=== PATIENT | female | born 1955 | race Caucasian/White ===

== ENCOUNTER → 2016-04-22 | Day surgery (SDC) | payer MEDICARE ==
[~2016-04-22] MED LIST: ABIL15TA2 PO; ADVA500A INH; ADVI200C5 PO; ALLO100T PO; ALPR.5 PO; BENZ1TAB PO; CILO100T PO; CILO50TA PO; CLON1 PO; DEXA4TAB PO; DUONI NEB; FERR1TAB58 PO; FLUO20SO3 PO; HALO10TA PO; HYDR-3534 PO; KLON2TAB PO; LACTATED RINGER'S 1000 ML INJ 1,000 ML ONE; LEVA500T33 PO; LIPI10TA PO; LIPI20TA PO; LOPR50TA12 PO; METO25TA3 PO; NORC7.5T PO; OXYGENTANK NAS.CANULA; PRED10PA PO; PRED5TAB PO; PREV30CA11 PO; PREV30CA36 PO; PROPOFOL 500 MG/50 ML BTL IV ONE; PROZ40CA PO; RIFA550 PO; SERO300T PO; SERO400T PO; TOPI25 PO; Z.0.OXYGENDME NC
== END | disposition home or self-care (01) ==
LOC: ESDC 07:49
PROVIDERS: ATTEND Internal Medicine Gastroenterology
DX: K29.70 Gastritis, unspecified, without bleeding (principal); K22.9 Disease of esophagus, unspecified; D12.3 Benign neoplasm of transverse colon; K62.1 Rectal polyp; D12.5 Benign neoplasm of sigmoid colon
CPT/HCPCS: 00740; 00810; 43239; 45380; 45385; 88305; 88312; J3010; J7120

== ENCOUNTER → 2016-04-30 | Outpatient (CLI) | payer MEDICARE ==
[~2016-04-30] MED LIST changes: -LACTATED RINGER'S 1000 ML INJ 1,000 ML ONE; -PROPOFOL 500 MG/50 ML BTL IV ONE
--- NOTE | 2016-05-10 13:09 | RSPPFT ---
DATE OF PROCEDURE: 04/30/16 COMMENTS: VOLUMES DYNAMIC: FVC and FEV1 normal. STATIC: VTG, RV and TLC normal. FLOWS: FEV1% and FEF 25-75 low normal. DIFFUSION: Severely reduced. FLOW VOLUME LOOP: Normal configuration with terminal airflow obstruction. IMPRESSION: Very mild terminal airflow obstruction with normal lung volumes and no improvement post-bronchodilator. The patient does have a severe reduction in diffusion.
== END ==
LOC: HRSP 08:46
PROVIDERS: ATTEND Internal Medicine
DX: J44.9 Chronic obstructive pulmonary disease, unspecified (principal)
CPT/HCPCS: 94060; 94620; 94726; 94729

== ENCOUNTER 2016-06-14 18:12 | Emergency (ER) | payer MEDICARE ==
[~2016-06-14] VITALS: Ht 157.5 cm; Wt 87.0 kg
[~2016-06-14 18:12] MED LIST changes: -ABIL15TA2 PO; -ADVI200C5 PO; -ALPR.5 PO; -BENZ1TAB PO; -CILO100T PO; -DEXA4TAB PO; -FERR1TAB58 PO; -HALO10TA PO; -HYDR-3534 PO; -KLON2TAB PO; -LIPI20TA PO; -METO25TA3 PO; -OXYGENTANK NAS.CANULA; -PREV30CA11 PO; -PROZ40CA PO; -SERO300T PO
[2016-06-14 18:14] VITALS: BP 204/117; PULSE 119; RESP 20; TEMP 98.4
[2016-06-14] MEDS ORDERED: PIPERACIL-TAZO 4.5 GM PREMIX 100 ML IV STA (18:26)
[2016-06-14] MEDS ORDERED: VANCOMYCIN INJ 1,000 MG in SODIUM CHLOR 0.9% 250 ML INJ 250 ML IV STA (18:26)
[2016-06-14 18:30] VITALS: RESP 20; O2SAT 97
--- NOTE | 2016-06-14 18:36 | PD ---
HPI Chief Complaint: Oral / Dental Pain or Problem Time Seen by Provider: 18:30 Travel History International Travel<30 days: No Contact w/Intl Traveler<30days: No Traveled to known affect area: No History of Present Illness HPI 61-year-old female with history of pulmonary fibrosis, requiring O2, presents the emergency department with history removal of 12 teeth from the upper jaw 2 weeks ago, performed by Dr. Barba, with secondary infection. Patient was seen 2 days ago, and drain was placed in the right upper jaw by her dental surgeon, and she was placed on Levaquin 500 mg daily. Patient continues to have drainage from the right upper jaw, and feels feverish, chills, nauseous , with drainage from the right upper jaw drain over the past several days. Patient feels worse today than she has yesterday. Patient has been taking hydrocodone for her pain which has been working well. She denies increased shortness of breath or chest pain. She denies vomiting or diarrhea. She is allergic to Percodan. PFSH Past Medical History Arthritis: No Asthma: Yes Autoimmune Disease: No Bipolar Disorder: Yes (w/Psychotic Features) Anxiety: Yes Depression: Yes Heart Rhythm Problems: No Cancer: Yes (Hx Breast Cancer) Cardiovascular Problems: Yes High Cholesterol: Yes Chemotherapy: Yes (1998) Chest Pain: Yes Congestive Heart Failure: No COPD: Yes Cerebrovascular Accident: No Coronary Artery Disease: No Diabetes: No Diminished Hearing: No Gastrointestinal Disorders: No GERD: No Glaucoma: No Genitourinary: No Headaches: No Hepatitis: No Hiatal Hernia: No Hypertension: Yes Kidney Stones: No Musculoskeletal: No Neurologic: No Psychiatric: Yes Reproductive: Yes Respiratory: Yes (pulmonary fibrosis) Immunizations Current: Yes Myocardial Infarction: No Renal Failure: No Seizures: No Sleep Apnea: No Thyroid Disease: No Ulcer: Yes (DUODENAL) Tetanus Vaccination: > 5 Years Influenza Vaccination: Yes Menopausal: Yes : 5 Para: 4 Miscarriage: 1 : 0 Ectopic : No Ovarian Cysts: Yes (BILATERAL) Dilation and Curettage (D&C): Yes Tubal Ligation: No Past Surgical History Abdominal Surgery: No Cardiac Surgery: No Section: No Ear Surgery: No Endocrine Surgery: No Eye Surgery: No Genitourinary Surgery: No Gynecologic Surgery: Yes Hysterectomy: Yes Mastectomy: Yes (right side) Oral Surgery: No Thoracic Surgery: Yes (RADICAL MASTECTOMY WITH HYSTERECTOMY) Tonsillectomy: Yes Social History Alcohol Use: No Tobacco Use: Yes (1 PPD) Substance Use: Yes Allergies-Medications (Allergen,Severity, Reaction): Coded Allergies: Percodan (Verified Allergy, Severe, Nausea/Vomiting, 06/14/16) Reported Meds & Prescriptions Reported Meds & Active Scripts Active Reported Oxygen tank (Oxygen) 1 Ea Tank 2 Liter JACKSON.CANULA CONTINUOUS Lortab (Hydrocodone-Acetaminophen) 7.5-325 Mg Tab 1 Tab PO TID PRN Xanax (Alprazolam) 0.5 Mg Tab 0.5-1 Mg PO DAILY PRN Benztropine (Benztropine Mesylate) 1 Mg Tab 1 Mg PO DAILY PRN Haloperidol 10 Mg Tab 10 Mg PO DAILY PRN Advil (Ibuprofen) 200 Mg Cap 600 Mg PO BID Lipitor (Atorvastatin Calcium) 20 Mg Tab 20 Mg PO HS Klonopin (Clonazepam) 2 Mg Tab 2 Mg PO HS Seroquel (Quetiapine Fumarate) 300 Mg Tab 600 Mg PO HS Abilify (Aripiprazole) 15 Mg Tab 15 Mg PO DAILY Iron (Ferrous Sulfate) 50 Mg Tab 150 Mg PO BID Prednisone 5 Mg Tab 5 Mg PO DAILY Allopurinol 100 Mg Tab 100 Mg PO DAILY Cilostazol 100 Mg Tab 100 Mg PO DAILY Metoprolol Tartrate 25 Mg Tab 25 Mg PO BID Prevacid (Lansoprazole) 30 Mg Capdr 30 Mg PO DAILY Prozac (Fluoxetine HCl) 40 Mg Cap 40 Mg PO DAILY Review of Systems Except as stated in HPI: all other systems reviewed are Neg General / Constitutional: Positive: Fever, Chills Eyes: No: Visual changes HENT: Positive: Headaches, Congestion, Dental Difficulties, Other (drainage from the right upper jaw), No: Lightheadedness, Sore Throat, Rhinitis, Rhinorrhea, Nosebleed, Neck Stiffness, Neck Pain, Ear Discharge, Earache Cardiovascular: No: Chest Pain or Discomfort Respiratory: Positive: Shortness of Breath, Wheezing (chronic. Chronic.), No : Cough, Sneezing Gastrointestinal: Positive: Nausea, No: Vomiting, Diarrhea, Abdominal Pain Genitourinary: No: Dysuria Musculoskeletal: No: Pain Skin: No Rash Neurologic: No: Weakness Psychiatric: No: Depression Endocrine: No: Polydipsia Hematologic/Lymphatic: No: Easy Bruising Physical Exam Narrative GENERAL: Patient appears in mild distress. She appears somewhat ill but not septic. SKIN: Warm. Mild pallor. Mild diaphoresis. HEAD: Atraumatic. Normocephalic. Patient has mild to moderate tenderness over the maxillary sinus. EYES: Pupils equal and round. No scleral icterus. No injection or drainage. ENT: No nasal bleeding or discharge. Mucous membranes pink and moist. Patient has drained fluid in the right upper gingival line with purulent drainage noted. Airway is patent. No significant lymphadenopathy. No erythema in the posterior pharynx. Ears are clear bilaterally. NECK: Trachea midline. No JVD. Supple nontender. CARDIOVASCULAR: Regular rate and rhythm. RESPIRATORY: No accessory muscle use. Mild Diffuse wheezes to auscultation. Breath sounds equal bilaterally. GASTROINTESTINAL: Abdomen soft, non-tender, nondistended. Hepatic and splenic margins not palpable. MUSCULOSKELETAL: Extremities without clubbing, cyanosis, or edema. No obvious deformities. NEUROLOGICAL: Awake and alert. No obvious cranial nerve deficits. Motor grossly within normal limits. Five out of 5 muscle strength in the arms and legs. Normal speech. PSYCHIATRIC: Appropriate mood and affect; insight and judgment normal. Data Data Last Documented VS Vital Signs Date Time Temp Pulse Resp B/P Pulse Ox O2 Delivery O2 Flow Rate FiO2 06/14/16 21:00 97 20 118/65 92 Nasal Cannula 4 06/14/16 18:14 98.4 Orders Electrocardiogram (06/14/16 18:26) Complete Blood Count With Diff (06/14/16 18:26) Comprehensive Metabolic Panel (06/14/16 18:26) Prothrombin Time / Inr (Pt) (06/14/16 18:26) Act Partial Throm Time (Ptt) (06/14/16 18:26) Lactic Acid Sepsis Protocol (06/14/16 18:26) Urinalysis - C+S If Indicated (06/14/16 18:26) Blood Culture (06/14/16 18:26) Chest, Single Ap (06/14/16 18:26) Blood Glucose (06/14/16 18:26) Ecg Monitoring (06/14/16 18:26) Iv Access Insert/Monitor (06/14/16 18:26) Oximetry (06/14/16 18:26) Oxygen Administration (06/14/16 18:26) Vancomycin Inj (Vancomycin Inj) (06/14/16 18:26) Piperacil-Tazo 4.5 Gm Premix (Zosyn 4.5 (06/14/16 18:26) Ct Facial Bones W/O Iv Cont (06/14/16 18:26) Lactic Acid (06/14/16 18:26) Morphine Inj (Morphine Inj) (06/14/16 19:45) Ondansetron Inj (Zofran Inj) (06/14/16 19:45) Dexamethasone Inj (Decadron Inj) (06/14/16 21:00) Labs Laboratory Tests Test 06/14/16 06/14/16 18:40 19:55 White Blood Count 17.9 TH/MM3 Red Blood Count 4.89 MIL/MM3 Hemoglobin 12.4 GM/DL Hematocrit 38.7 % Mean Corpuscular Volume 79.2 FL Mean Corpuscular Hemoglobin 25.4 PG Mean Corpuscular Hemoglobin 32.1 % Concent Red Cell Distribution Width 19.0 % Platelet Count 343 TH/MM3 Mean Platelet Volume 9.1 FL Neutrophils (%) (Auto) 84.9 % Lymphocytes (%) (Auto) 9.2 % Monocytes (%) (Auto) 4.7 % Eosinophils (%) (Auto) 0.9 % Basophils (%) (Auto) 0.3 % Neutrophils # (Auto) 15.2 TH/MM3 Lymphocytes # (Auto) 1.6 TH/MM3 Monocytes # (Auto) 0.8 TH/MM3 Eosinophils # (Auto) 0.2 TH/MM3 Basophils # (Auto) 0.1 TH/MM3 CBC Comment DIFF FINAL Differential Comment Prothrombin Time 11.4 SEC Prothromb Time International 1.0 RATIO Ratio Activated Partial 30.8 SEC Thromboplast Time Sodium Level 136 MEQ/L Potassium Level 3.9 MEQ/L Chloride Level 100 MEQ/L Carbon Dioxide Level 27.3 MEQ/L Anion Gap 9 MEQ/L Blood Urea Nitrogen 16 MG/DL Creatinine 1.14 MG/DL Estimat Glomerular Filtration 49 ML/MIN Rate Random Glucose 105 MG/DL Lactic Acid Level 1.2 mmol/L Calcium Level 9.2 MG/DL Total Bilirubin 0.4 MG/DL Aspartate Amino Transf 19 U/L (AST/SGOT) Alanine Aminotransferase 21 U/L (ALT/SGPT) Alkaline Phosphatase 125 U/L Total Protein 7.9 GM/DL Albumin 3.4 GM/DL Urine Color LIGHT-YELLOW Urine Turbidity CLEAR Urine pH 8.0 Urine Specific Gaines 1.007 Urine Protein NEG mg/dL Urine Glucose (UA) NEG mg/dL Urine Ketones NEG mg/dL Urine Occult Blood NEG Urine Nitrite NEG Urine Bilirubin NEG Urine Urobilinogen LESS THAN 2.0 MG/DL Urine Leukocyte Esterase SMALL Urine WBC 1 /hpf Urine Squamous Epithelial 1 /hpf Cells Microscopic Urinalysis Comment CATH-CULT NOT IND MDM Medical Decision Making Medical Screen Exam Complete: Yes Emergency Medical Condition: Yes Medical Record Reviewed: Yes Differential Diagnosis Recent dental surgery. Dental abscess. Sinus abscess. History of pulmonary fibrosis requiring O2. Fever. Possible sepsis. Narrative Course Patient appears medically stable at time of exam. Labs ordered including CBC, CMP, lactic acid, blood cultures 2, and urinalysis. EKG, chest x-ray, and CT of the sinus bones are ordered. IV access is obtained patient is given 4.5 g of Zosyn, and 1000 mg of vancomycin IV. Patient is given 4 mg Zofran IV as well as 4 mg morphine IV. Patient is given 1000 mL normal saline bolus. CBC shows leukocytosis of 17.9, but this could be partially due to her chronic prednisone use versus infection. CMP is unremarkable except for creatinine 1.14. Alkaline phosphatase slightly elevated at 125. Lactic acid is 1.2. CT of the facial bones shows suspected bony destruction and abscess involving the right maxilla at the expected location of the first molar on the right, this very bony destruction is associated with a past history and the right and exercise and into the socket for the first molar on the right per radiologist. Chest x-ray was unremarkable for acute process. We attempted to call Dr. Barba, but were unable to reach him. 2010 hrs. call was placed to Dr. Borjas the maxillofacial surgeon condenser tube tender. Patient was discussed and he felt that she should receive 4 mg of Decadron IV, and addition to the IV antibiotics previously ordered. He then felt she could be discharged home and follow-up with him on Friday. Patient is to continue her current meds as previous. Patient is given a dose of Decadron to take in the morning for milligrams by mouth. Patient will follow-up tomorrow if symptoms worsen, otherwise will follow-up with Dr. Borjas on Friday. Diagnosis Primary Impression: Dental abscess Additional Impression: Sinusitis, acute maxillary Qualified Code: J01.00 - Acute non-recurrent maxillary sinusitis Referrals: Roman Ward DDS Patient Instructions: Dental Abscess (ED), General Instructions, Sinusitis (ED) Additional Instructions: Patient was discussed and he felt that she should receive 4 mg of Decadron IV, and addition to the IV antibiotics previously ordered. He then felt she could be discharged home and follow-up with him on Friday. Patient is to continue her current meds as previous. Patient is given a dose of Decadron to take in the morning for milligrams by mouth. Patient will follow-up tomorrow if symptoms worsen, otherwise will follow-up with Dr. Borjas on Friday. Med/Other Pt SpecificInfo: Prescription(s) given Disposition: DISCHARGE HOME Condition: Stable Chencho Madrigal Jun 14, 2016 18:36
[2016-06-14] MEDS ORDERED: PRED5TAB PO (18:45)
[2016-06-14] MEDS ORDERED: FERR1TAB58 PO (18:45)
[2016-06-14] MEDS ORDERED: ALPR.5 PO (18:45)
[2016-06-14] MEDS ORDERED: PREV30CA11 PO (18:45)
[2016-06-14] MEDS ORDERED: PROZ40CA PO (18:45)
[2016-06-14] MEDS ORDERED: SERO300T PO (18:45)
[2016-06-14] MEDS ORDERED: ADVI200C5 PO (18:45)
[2016-06-14] MEDS ORDERED: HYDR-3534 PO (18:45)
[2016-06-14] MEDS ORDERED: LIPI20TA PO (18:45)
[2016-06-14] MEDS ORDERED: ALLO100T PO (18:45)
[2016-06-14] MEDS ORDERED: CILO100T PO (18:45)
[2016-06-14] MEDS ORDERED: OXYGENTANK NAS.CANULA (18:45)
[2016-06-14] MEDS ORDERED: HALO10TA PO (18:45)
[2016-06-14] MEDS ORDERED: BENZ1TAB PO (18:45)
[2016-06-14] MEDS ORDERED: METO25TA3 PO (18:45)
[2016-06-14] MEDS ORDERED: KLON2TAB PO (18:45)
[2016-06-14] MEDS ORDERED: ABIL15TA2 PO (18:45)
[2016-06-14 19:17] VITALS: BP 135/65; PULSE 106; RESP 18; O2SAT 99
[2016-06-14 19:17] LABS: AUTOMATED NEUTROPHIL # 15.2 TH/MM3 (1.8-7.7); BASOPHIL # 0.1 TH/MM3 (0-0.2); BASOPHIL % 0.3 % (0.0-2.0); EOSINOPHIL # 0.2 TH/MM3 (0-0.4); EOSINOPHIL % 0.9 % (0.0-4.0); HEMATOCRIT 38.7 % (35.0-46.0); HEMO FLAGS DIFF FINAL; LYMPH % 9.2 % (9.0-44.0); LYMPHOCYTE # 1.6 TH/MM3 (1.0-4.8); MEAN CELL VOLUME 79.2 FL (80.0-100.0); MEAN CORPUSCULAR HEMOGLOBIN 25.4 PG (27.0-34.0); MEAN CORPUSCULAR HGB CONC 32.1 % (32.0-36.0); MONO % 4.7 % (0.0-8.0); NEUT % 84.9 % (16.0-70.0); PLATELET COUNT 343 TH/MM3 (150-450); RED BLOOD COUNT 4.89 MIL/MM3 (4.00-5.30); WHITE BLOOD COUNT 17.9 TH/MM3 (4.0-11.0)
--- NOTE | 2016-06-14 19:20 | RADRPT ---
EXAM DATE/TIME: 06/14/2016 18:52 [facility] COMPARISON: No previous studies available for comparison. INDICATIONS : Evaluate for abscess. RADIATION DOSE: 36.44 CTDIvol (mGy) MEDICAL HISTORY : Hypertension. SURGICAL HISTORY : Tonsillectomy. ENCOUNTER: Initial ACUITY: 1 day PAIN SCORE: 6/10 LOCATION: Right facial region. TECHNIQUE: Volumetric scanning of the facial bones was performed. Using automated exposure contr ol and adjustment of the mA and/or kV according to patient size, radiation dose was kept as low as re asonably achievable to obtain optimal diagnostic quality images. FINDINGS: It appears all the upper teeth have been removed. There does appear to be an area of f ocal bony destruction in the medial right maxillary bone over the expected location of the first mola r. The defect in the maxillary bone appears to communicate with the right maxillary sinus. The defe ct measures 4 mm. There is fluid throughout the right maxillary sinus. There is induration in the so ft tissues surrounding this region. A focal fluid-filled abscess is not clearly seen. The left maxi llary sinus is clear. The frontal, left ethmoid and bilateral sphenoid sinuses are clear. There is s ome scattered right ethmoid sinus disease. The nasal septum is in the midline. There is paradoxical turning of the inferior aspects of the medial turbinates, this is a normal variant. The orbits appea r normal. The mandible is unremarkable. CONCLUSION: Suspected bony destruction and abscess involving the right maxilla at the expected lo cation of the first molar on the right. This area of bony destruction is associated with a passage b etween the right maxillary sinus and into the socket for the first molar on the right. Kyle Lizarraga MD on June 14, 2016 at 19:07 Board Certified Radiologist. This report was verified electronically.
--- NOTE | 2016-06-14 19:21 | RADRPT ---
EXAM DATE/TIME: 06/14/2016 19:13 [facility] COMPARISON: CHEST PA & LAT, May 18, 2015, 8:24. CHEST SINGLE AP, May 22, 2015, 5:02. INDICATIONS : Possible infection from dental surgery. MEDICAL HISTORY : Carcinoma, breast. SURGICAL HISTORY : Mastectomy, right. ENCOUNTER: Initial ACUITY: 1 day PAIN SCORE: 0/10 LOCATION: Bilateral chest FINDINGS: The heart size is normal. There is some minimal chronic prominence of the interstitium. A focal alveolar consolidation is not clearly seen. No effusion is seen. Clips are seen in the rig ht axillary region. CONCLUSION: No acute abnormality is seen. The patient does appear to have some underlying chroni c interstitial prominence. Kyle Lizarraga MD on June 14, 2016 at 19:14 Board Certified Radiologist. This report was verified electronically.
[2016-06-14 19:29] LABS: APTT (PATIENT) 30.8 SEC (24.3-30.1); PROTHROMBIN TIME - PATIENT 11.4 SEC (9.8-11.6)
[2016-06-14 19:39] LABS: ANION GAP 9 MEQ/L (5-15); AST (GOT) 19 U/L (15-37); BICARBONATE 27.3 MEQ/L (21.0-32.0); BLOOD UREA NITROGEN 16 MG/DL (7-18); CHLORIDE 100 MEQ/L (98-107); GLOMERULAR FILTRATION RATE 49 ML/MIN (>89); POTASSIUM 3.9 MEQ/L (3.5-5.1); SODIUM (NA) 136 MEQ/L (136-145)
[2016-06-14 19:43] LABS: ALKALINE PHOSPHATASE 125 U/L (45-117); ALT (GPT) 21 U/L (10-53); TOTAL BILIRUBIN ADULT 0.4 MG/DL (0.2-1.0)
[2016-06-14] MEDS ORDERED: MORPHINE SULFATE 4 MG/ML INJ IV PUSH ONE (19:45)
[2016-06-14] MEDS ORDERED: ONDANSETRON HCL 4 MG/2 ML VIAL IV PUSH ONE (19:45)
[2016-06-14 20:41] LABS: BLOOD, URINE NEG (NEG); GLUCOSE,URINE NEG (NEG); KETONE, URINE NEG (NEG); NITRITE,URINE NEG (NEG); SQUAMOUS EPITHELIAL CELL URINE 1 /hpf (0-5); URINE COLOR LIGHT-YELLOW (YELLW/STRAW)
[2016-06-14 20:43] LABS: COMMENT (UR) CATH-CULT NOT IND; CULTURE IF INDICATED CATH CULTURE NOT IND
[2016-06-14 21:00] VITALS: BP 118/65; PULSE 97; RESP 20; O2SAT 92
[2016-06-14] MEDS ORDERED: DEXAMETHASONE SOD PHOS 4 MG/ML VIAL IV PUSH ONE (21:00)
[2016-06-14] MEDS ORDERED: DEXA4TAB PO (21:39)
--- NOTE | 2016-06-15 19:18 | EKG ---
Date Performed: 06/14/2016 Time Performed: 19:21:17 PTAGE: 61 years EKG: SINUS TACHYCARDIA INDETERMINATE AXIS NS ST-T CHANGES ABNORMAL RHYTHM ECG PREVIOUS TRACING : 05/15/2015 12.32 Compared to the previous tracing NS ST-T changes present DOCTOR: Annette Landaverde Interpretating Date/Time 06/15/2016 19:17:02
== END 2016-06-14 22:21 | disposition home or self-care (01) ==
LOC: NEPE 18:12
DX: K04.7 Periapical abscess without sinus (principal); J01.00 Acute maxillary sinusitis, unspecified; R00.0 Tachycardia, unspecified; J84.10 Pulmonary fibrosis, unspecified; J45.909 Unspecified asthma, uncomplicated; J44.9 Chronic obstructive pulmonary disease, unspecified; I10 Essential (primary) hypertension; F17.200 Nicotine dependence, unspecified, uncomplicated; Z79.899 Other long term (current) drug therapy; Z99.81 Dependence on supplemental oxygen
CPT/HCPCS: 70486; 71010; 80053; 81001; 83605; 85025; 85610; 85730; 87040; 93005; 96374; 96375; 99285; J1100; J2270; J2405; J2543; J3370; J7050

== ENCOUNTER 2016-09-03 13:12 | Day surgery (SDC) | payer MEDICARE ==
[~2016-09-03 13:12] MED LIST changes: +ABIL15TA2 PO; -ADVA500A INH; +ADVI200C5 PO; +ALPR.5 PO; +BENZ1TAB PO; +CILO100T PO; -CILO50TA PO; -CLON1 PO; +DEXA4TAB PO; -DUONI NEB; +FERR1TAB58 PO; -FLUO20SO3 PO; +HALO10TA PO; +HYDR-3534 PO; +KLON2TAB PO; -LEVA500T33 PO; -LIPI10TA PO; +LIPI20TA PO; -LOPR50TA12 PO; +METO25TA3 PO; -NORC7.5T PO; +OXYGENTANK NAS.CANULA; -PRED10PA PO; +PREV30CA11 PO; -PREV30CA36 PO; +PROZ40CA PO; -RIFA550 PO; +SERO300T PO; -SERO400T PO; -TOPI25 PO; -Z.0.OXYGENDME NC
[2016-09-03 13:33] VITALS: BP 159/86; PULSE 79; RESP 20; TEMP 98; O2SAT 94
[2016-09-03] MEDS ORDERED: IBUP-232 PO (13:51)
[2016-09-03] MEDS ORDERED: BENZ0.5T PO (13:52)
[2016-09-03] MEDS ORDERED: VANCOMYCIN 1,500 MG/NS 500 ML IV ONE ×4 (15:00)
--- NOTE | 2016-09-03 17:06 | PD.RAD ---
Radiology Post PICC Prog Note Pre Procedure Diagnosis: (1) Sinusitis, acute maxillary Post Procedure Diagnosis: (1) Sinusitis, acute maxillary Procedure: Left PICC line placement Procedure Date: Sep 03, 2016 Supervising Radiologist Ok Adkins JR Proceduralist/Assist: Colleen Ray, RT(R)() Device Side: Left Macedonian: 4 single lumen cm: 43 Catheter: Power PICC Plan of Activity Patient to Unit: ROPU Patient Condition: Good PICC line can be used immediately Jr. Jed,Ok Saba MD Sep 03, 2016 17:06
[2016-09-03] MEDS ORDERED: SODIUM CHLORIDE 0.9% FLUSH 10 ML FLUSH IVF PRN ×2 (17:15)
--- NOTE | 2016-09-04 08:27 | RADRPT ---
EXAM DATE/TIME: 09/03/2016 14:38 [facility] COMPARISON: No previous studies available for comparison. INDICATIONS : Sinus infection.Patient needs IV antibx. MEDICAL HISTORY : 1. Pulmonary fibrosis 2. COPD 3. Asthma 4. HTN 5. Bipolar SURGICAL HISTORY : 1. Tonsillectomy 2. Rt masectomy 3. Hysterectomy ENCOUNTER: Initial ACUITY: 1 month PAIN SCORE: 0/10 FLUORO TIME: 0.2 IMAGE SERIES: 1 ACCESS: Left basilic vein DEVICE(S): 1.) 4 Korean single lumen 43 cm Xcela Power PICC PROCEDURE : 1. Ultrasound guidance for venous catheterization. 2. Fluoroscopic guidance. 3. Ultrasound & fluoroscopic guided central venous Power PICC line placement. The risks, benefits and alternatives to the procedure were explained and verbal and written consent w as obtained. The site was prepped in sterile fashion. Full sterile technique was used, including ca p, mask, sterile gloves and gown and a large sterile sheet. Hand hygiene and 2% chlorhexidine prep w as utilized per protocol for cutaneous antisepsis with appropriate dry time for site. The skin and s ubcutaneous tissues were infiltrated with local anesthetic solution. Under direct ultrasound guidance, a suitable vein was accessed and a measuring guidewire was introduc ed and positioned in the central venous system. The ultrasound images depicting access guidance were saved and stored to PACS for permanent record. A Power Injectable PICC line was cut to prescribed length and introduced, positioned with tip at the cavoatrial junction level. The line was flushed and secured per protocol. CONCLUSION: 1. Uncomplicated central venous Power PICC line placement. 2. The PICC line can be used immediately. Ok Adkins Jr., MD on September 04, 2016 at 8:19 Board Certified Radiologist. This report was verified electronically.
[2016-09-04] MEDS ORDERED: SODIUM CHLORIDE 0.9% FLUSH 10 ML FLUSH IVF SCH (09:00)
== END 2016-09-03 16:56 | disposition home or self-care (01) ==
LOC: HROP 13:12 → HRIP 13:13 → HROP 16:56
PROVIDERS: ATTEND Specialist
DX: J01.90 Acute sinusitis, unspecified (principal); I10 Essential (primary) hypertension; J44.9 Chronic obstructive pulmonary disease, unspecified; J45.909 Unspecified asthma, uncomplicated; F31.9 Bipolar disorder, unspecified; J84.10 Pulmonary fibrosis, unspecified
CPT/HCPCS: 36569; 76937; 77001; 96365; C1751; J1642; J3370; J7040

== ENCOUNTER 2016-09-04 09:09 | Day surgery (SDC) | payer MEDICARE ==
[~2016-09-04 09:09] MED LIST changes: -ADVI200C5 PO; +BENZ0.5T PO; -BENZ1TAB PO; -FERR1TAB58 PO; +IBUP-232 PO
[2016-09-04 09:27] VITALS: BP 134/83; PULSE 95; RESP 20; TEMP 99.3; O2SAT 93
== END 2016-09-04 09:50 | disposition home or self-care (01) ==
LOC: HROP 09:09 → HRIP 09:13 → HROP 09:50
PROVIDERS: ATTEND Radiology Body Imaging
DX: Z45.2 Encounter for adjustment and management of vascular access device (principal)
CPT/HCPCS: 36569; 76937; 77001; G0463; 99211

== ENCOUNTER → 2016-10-10 | Day surgery (SDC) | payer MEDICARE ==
[~2016-10-10] VITALS: Ht 160 cm; Wt 86.0 kg
[~2016-10-10] MED LIST changes: +*RESP: ALBUTEROL 2.5 MG/3 ML NEB (PRN) PERIprocedural Use ONLY NEB ONE; +ACETAMINOPHEN 1000 MG/100 ML 100 ML IV ONE; +ACETAMINOPHEN/HYDROcodone 325 MG/7.5 MG TAB ONE; +ACETAMINOPHEN/HYDROcodone 325 MG/7.5 MG TAB PO PRN; +CHLORHEXIDINE GLUCONATE 2 % 1 PACK (2 CLOTHS) TOPICAL PRN; +DIFL100T PO; +DO NOT ADM ANY ANTICOAGULANT DRUGS PRN; +EPINEPHrine HCL (1:1000) 30 MG/30 ML VIAL ONE; +INSULIN HUMAN REGULAR 1,000 UNITS/10 ML VIAL SQ PRN; +LACTATED RINGER'S 1000 ML IV PRN; +LIDOCAINE 2%/EPINEPHrine PF 1:200,000 20ML SDV ONE; +METOPROLOL TARTRATE 25 MG TAB PO PRN; +MORPHINE SULFATE 4 MG/ML INJ IV PUSH PRN; +ONDANSETRON HCL 4 MG/2 ML VIAL IV PUSH ONE; +ONDANSETRON HCL 4 MG/2 ML VIAL IV PUSH PRN; +POVIDONE IODINE 5% (ANTISEPSIS KIT) 4 APPLICATIONS EACH NARE PRN; +PROPOFOL 200 MG/20 ML AMP IV ONE; +SODIUM CHLORID 0.9% 500 ML IV PRN; +SUGAMMADEX SODIUM 200 MG/2 ML VIAL IV PUSH ONE; +fentaNYL CITRATE 250 MCG/5 ML AMP ONE
--- NOTE | 2016-10-10 07:55 | MH ---
cc: BETH RIVERS M.D. DATE OF ADMISSION: 10/10/2016 HISTORY OF PRESENT ILLNESS A 58-year-old female with chronic sinusitis and nasal obstruction for nasal sinus surgery. PAST MEDICAL HISTORY Unremarkable. PAST SURGICAL HISTORY Unremarkable. REVIEW OF SYSTEMS/FAMILY HISTORY AND SOCIAL HISTORY Unremarkable. PHYSICAL EXAMINATION GENERAL: Well-appearing patient no acute distress noted. HEENT: Exam reveals mucopurulent secretions from the right middle meatus. LUNGS: Clear. HEART: Regular rate and rhythm. ABDOMEN: Soft and nontender. EXTREMITIES: Without cyanosis, clubbing or edema. NEUROLOGIC: Alert, oriented, nonfocal neurologic exam. IMPRESSION The patient with chronic sinusitis for surgical intervention. Instructed as to the method of surgery and possible complication include anesthetic complications, cardiac difficulty, pulmonary difficulty, stroke, or even . Surgical complications bleeding, infection, risk of injury to orbit including blindness and diplopia, injury to brain, including CSF leak, meningitis, abscess, . The patient appeared to agree, accept and understand the above-mentioned risks and benefits. In addition, no guarantees or warranties regarding outcome were given. Will therefore proceed with surgery. Beth Rivers MD NERI/EO /5:44 PM /7:50 AM
--- NOTE | 2016-10-10 11:05 | EKG ---
Date Performed: 10/10/2016 Time Performed: 08:25:37 PTAGE: 61 years EKG: Sinus rhythm NORMAL ECG PREVIOUS TRACING : 06/14/2016 19.21 Compared to previous tracing, nonspecific ST changes have r esolved. DOCTOR: Ruy Pop Interpretating Date/Time 10/10/2016 11:03:35
[2016-10-10 12:45] VITALS: BP 132/80; PULSE 82; RESP 20; TEMP 97; O2SAT 95
--- NOTE | 2016-10-13 20:39 | MP ---
cc: BETH RIVERS DATE OF SURGERY: 10/10/2016. PREOPERATIVE DIAGNOSIS: Chronic sinusitis, right side. PROCEDURE: Endoscopic frontal sinusotomy, right side; endoscopic anterior and posterior ethmoidectomy right side, endoscopic maxillary antrostomy with removal of tissue right side. SURGEON: Beth Rivers MD ANESTHESIA: General anesthesia. ESTIMATED BLOOD LOSS: 100 cc. COMPLICATIONS: No complications. DESCRIPTION OF THE PROCEDURE IN DETAIL: Prepped, draped usual fashion. 1% Xylocaine with 1:100,000 epinephrine injected into the nasal septum, the inferior turbinate and middle meatus bilaterally. 1:1000 adrenaline soaked pledgets were placed bilaterally and removed. Under endoscopic visualization, microdebrider was used to remove the uncinate process on the right side. A significant amount of purulent material was expressed at this time from the middle meatus. Once this was expressed from the middle meatus, it was cultured. The microdebrider was used to remove the remainder of the uncinate. Once this was achieved, the patient then had the frontal sinus recess dissected. Mucopurulent secretions were suctioned from the frontal sinus recess. The anterior and posterior ethmoidectomy was performed with removal of significant mucopurulent material and bony septae taking care not to injure the orbit or the cranium. The natural antrostomy identified and enlarged significantly with polypoid tissue removed from it endoscopically with the microdebrider and the maxillary antrostomy was irrigated with saline and suctioned clear. A Telfa splint was placed. The patient tolerated procedure well. Beth Rivers MD [facility] /7:51 AM /8:32 PM
== END | disposition home or self-care (01) ==
LOC: HSDC 06:52
PROVIDERS: ATTEND Specialist
DX: J32.9 Chronic sinusitis, unspecified (principal); J34.89 Other specified disorders of nose and nasal sinuses; B95.7 Other staphylococcus as the cause of diseases classified elsewhere; Z16.11 Resistance to penicillins; I10 Essential (primary) hypertension; Z01.818 Encounter for other preprocedural examination
CPT/HCPCS: 00160; 31255; 31267; 31276; 86403; 87015; 87070; 87077; 87102; 87116; 87185; 87186; 87205; 87206; 93005; J0131; J0171; J2405; J3010; J7120; J7613; 94150; 94640; 94664

== ENCOUNTER 2017-09-17 10:12 | Inpatient (IN) ==
[2017-09-17 11:13] LABS: Baso # (Auto) 0.1 th/mm3 (0.0-0.2); Baso % (Auto) 0.7 % (0.0-2.0); Eos % (Auto) 0.4 % (0.0-4.0); Hematocrit 40.6 % (35.0-46.0); Hemoglobin 13.9 gm/dL (11.6-15.3); Lymph # (Auto) 1.2 th/mm3 (1.0-4.8); Lymph % (Auto) 12.6 % (9.0-44.0); Mean Corpuscular HGB Conc 34.3 % (32.0-36.0); Mean Corpuscular Hemoglobin 29.3 pg (27.0-34.0); Mean Corpuscular Volume 85.5 fL (80.0-100.0); Mean Platelet Volume 9.2 fL (7.0-11.0); Mono # (Auto) 0.4 th/mm3 (0.0-0.9); Mono % (Auto) 4.4 % (0.0-8.0); Neut % (Auto) 81.9 % (16.0-70.0); Platelet Count 293 th/mm3 (150-450); Red Blood Count 4.75 mil/mm3 (4.00-5.30); Red Cell Distribution Width 14.6 % (11.6-17.2); White Blood Count 9.7 th/mm3 (4.0-11.0)
[2017-09-17 11:33] LABS: Alanine Aminotransferase 31 U/L (10-53); Albumin 3.8 g/dL (3.4-5.0); Anion Gap 9 meq/L (5-15); Aspartate Aminotransferase 18 U/L (15-37); Blood Urea Nitrogen 14 mg/dL (7-18); Calcium 9.2 mg/dL (8.5-10.1); Chloride 105 meq/L (98-107); Glomerular Filtration Rate 56 mL/min (>89); Glucose,Random 119 mg/dL (74-106); Potassium 3.8 meq/L (3.5-5.1); Sodium 141 meq/L (136-145)
[2017-09-17 11:43] LABS: Alkaline Phosphatase 100 U/L (45-117); Total Protein 7.8 g/dL (6.4-8.2)
[2017-09-17] MEDS ORDERED: Tetanus/Diphtheria Toxoid Adult Vaccine Inj 0.5 ML Vial IM ONE (12:04)
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
[2017-09-17] MEDS ORDERED: Acetaminophen 325 MG Tablet PO PRN (14:35)
[2017-09-17] MEDS ORDERED: Aluminum/Magnesium/Simethacone Susp 30 ML UDC PO PRN (14:35)
[2017-09-17] MEDS: Gabapentin 300 MG Capsule PO SCH ×2 (18:02→20:14)
[2017-09-17] MEDS: Metoprolol Tartrate 25 MG Tablet PO SCH ×2 (18:02→20:14)
[2017-09-17] MEDS: Allopurinol 100 MG Tablet PO SCH (18:03)
[2017-09-17] MEDS: Baclofen 10 MG Tablet PO SCH (20:14)
[2017-09-18] MEDS ORDERED: Gabapentin 300 MG Capsule PO SCH (09:00)
[2017-09-18] MEDS ORDERED: Allopurinol 100 MG Tablet PO SCH (09:00)
[2017-09-18] MEDS ORDERED: Metoprolol Tartrate 50 MG Tablet PO SCH (09:00)
[2017-09-18] MEDS: Gabapentin 300 MG Capsule PO SCH ×4 (09:23→20:31)
[2017-09-18] MEDS: Metoprolol Tartrate 25 MG Tablet PO SCH ×2 (09:23→20:31)
[2017-09-18] MEDS ORDERED: Bisacodyl 10 MG Supp RECTAL PRN (09:55)
[2017-09-18] MEDS ORDERED: Aluminum/Magnesium/Simethacone Susp 30 ML UDC PO PRN (09:55)
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
--- NOTE | 2017-09-18 10:57 | P.CONIM ---
History of Present Illness Requesting Physician: Kyle Padilla Reason for Consult: Medical management Primary Care Provider: Ha Caraballo MD Family Provider: Ha Caraballo MD History of Present Illness: This a 62-year-old female patient with past medical history which includes bipolar disorder, cervical radiculopathy, chronic respiratory failure, pulmonary fibrosis, COPD on 5 L oxygen via nasal cannula at home, chronic kidney disease stage III, nonalcoholic fatty liver, GERD, gastroparesis, hypertension, irritable bowel syndrome, breast cancer status post mastectomy and lumbar radiculopathy. Patient has been weaning herself off her Seroquel without physician orders. She also quit taking her antidepressant 2 days ago. She states that she has been hearing voices over the past several days. The patient also endorses feeling suicidal and had thoughts of killing herself. Patient has been admitted to inpatient psychiatric unit we have been consulted for assistance with medical management. Patient offers no medical complaints at this time. Patient denies chest pain nausea vomiting fevers chills cough congestion. Patient reports her shortness of breath is at her baseline due to her chronic respiratory failure pulmonary fibrosis and COPD. PMH: bipolar disorder, cervical radiculopathy, chronic respiratory failure, pulmonary fibrosis, COPD on 5 L oxygen via nasal cannula at home, chronic kidney disease stage III, nonalcoholic fatty liver, GERD, gastroparesis, hypertension, irritable bowel syndrome and lumbar radiculopathy PSxH: Mastectomy secondary to breast cancer, capsule endoscopy, colonoscopy, EGD, hysterectomy, paravertebral nerve block, tonsillectomy adenoidectomy Social history: FMH: Review of Systems unobtainable due to mental status [facility] - History History Provided By: Patient, Family Member - Medical History Medical History: Medical History (Last Updated 09/17/17 @ 10:41 by Korina Barron RN) Bipolar disorder Depression Gastroparesis H/O: hysterectomy HTN (hypertension) Pulmonary fibrosis Wears dentures [place] teeth extracted - Surgical History Surgical History: Surgical History (Last Updated 09/17/17 @ 10:41 by Korina Barron RN) History of mastectomy History of tonsillectomy - Tobacco History Second Hand Smoke Exposure: Yes Tobacco Use In Past 30 Days: Yes Smoking Status: Current every day smoker Tobacco Type: E-Cigarettes - Alcohol History How Often Do You Have a Drink Containing Alcohol: Never - Substance Use History Substance History: Active Abuse, Past History - Substance Use Type Marijuana Type: Admits "one toke" 2x days ago Status: Active Route Used: Inhalation Frequency: had some 2 days ago Reason for Use: Get High - Travel History Recent Travel in the [place] Within the Last 8 Weeks: No Recent Travel Out of the Country Within the Last 8 Weeks: No - Immunization History Tetanus Immunization: Unsure Hx Influenza Vaccine This Season: No Medications and Allergies Allergies Allergy/AdvReac Type Severity Reaction Status Date / Time aspirin Allergy Severe Nausea/Vomi Unverified 01/02/17 13:25 ting oxycodone Allergy Severe Nausea/Vomi Unverified 01/02/17 13:25 ting sulfamethoxazole Allergy Severe rash Verified 01/02/17 13:25 trimethoprim Allergy Severe rash Verified 01/02/17 13:25 Home Medications Medication Instructions Recorded Confirmed Type allopurinol 100 mg PO DAILY 09/17/17 09/17/17 History atorvastatin [Lipitor] 20 mg PO DAILY 09/17/17 09/17/17 History baclofen 10 mg PO HS 09/17/17 09/17/17 History cholecalciferol (vitamin D3) 1,000 unit PO DAILY 09/17/17 09/17/17 History [Vitamin D3] cilostazol 50 mg PO BID 09/17/17 09/17/17 History clonazepam [Klonopin] 2 mg PO DAILY 09/17/17 09/17/17 History fluoxetine [Prozac] 40 mg PO DAILY 09/17/17 09/17/17 History gabapentin 300 mg PO QID 09/17/17 09/17/17 History haloperidol 10 mg PO TID PRN 09/17/17 09/17/17 History hydrocodone-acetaminophen 1 tab PO Q6H PRN 09/17/17 09/17/17 History lansoprazole [Prevacid] 30 mg PO DAILY 09/17/17 09/17/17 History metoprolol tartrate [Lopressor] 25 mg PO BID 09/17/17 09/17/17 History omega 3-nvm-kbj-fish oil [Fish Oil] 1,000 mg PO HS 09/17/17 09/17/17 History prednisone 5 mg PO DAILY 09/17/17 09/17/17 History quetiapine [Seroquel] 600 mg PO HS 09/17/17 09/17/17 History Active Medications: Active Medications Acetaminophen (Tylenol) 650 mg PO Q4H PRN PRN Reason: Pain 1-5 or Temp >101F Hydrocodone Bitart/Acetaminophen ([place] 7.5/325) 1 tab PO Q6H PRN PRN Reason: PAIN 1-10 Al Hydrox/Mg Hydrox/Simethicone (Mag-Al Plus Susp Liq) 30 ml PO Q6H PRN PRN Reason: DYSPEPSIA Al Hydroxide/Mg Hydroxide (Milk Of Magnesia Liq) 30 ml PO Q12H PRN PRN Reason: Mild Constipation Allopurinol (Zyloprim) 100 mg PO DAILY [facility] Last Admin: 09/17/17 18:03 Dose: 100 mg Atorvastatin Calcium (Lipitor) 20 mg PO DAILY [facility] Last Admin: 09/18/17 09:23 Dose: 20 mg Baclofen (Lioresal) 10 mg PO HS [facility] Last Admin: 09/17/17 20:14 Dose: 10 mg Bisacodyl (Dulcolax Supp) 10 mg RECTAL DAILY PRN PRN Reason: SEVERE CONSITIPATION Cilostazol (Pletal) 50 mg PO BID [facility] Clonazepam (Klonopin) 2 mg PO DAILY [facility] Diphenhydramine HCl (Benadryl) 50 mg PO HS PRN PRN Reason: INSOMNIA Fluoxetine HCl (Prozac) 40 mg PO DAILY [facility] Gabapentin (Neurontin) 300 mg PO QID [facility] Last Admin: 09/18/17 09:23 Dose: 300 mg Haloperidol (Haldol) 10 mg PO BID@0900,1800 [facility] Last Admin: 09/17/17 18:03 Dose: 10 mg Hydroxyzine HCl (Atarax) 50 mg PO Q6H PRN PRN Reason: ANXIETY Lactulose (Lactulose Liq) 30 ml PO DAILY PRN PRN Reason: SEVERE CONSITIPATION Metoprolol Tartrate (Lopressor) 25 mg PO BID [facility] Last Admin: 09/18/17 09:23 Dose: 25 mg Nicotine (Habitrol 21 Mg Patch.24 Hr) 1 patch T-DERMAL DAILY [facility] Last Admin: 09/18/17 09:23 Dose: 1 patch Pantoprazole Sodium (Protonix) 40 mg PO DAILY [facility] Last Admin: 09/18/17 09:23 Dose: 40 mg Patch Removal (Remove Old Patch) 1 each T-DERMAL DAILY [facility] Last Admin: 09/18/17 09:24 Dose: 1 each Prednisone (Deltasone) 5 mg PO DAILY [facility] Quetiapine Fumarate (Seroquel) 600 mg PO HS [facility] Last Admin: 09/17/17 20:16 Dose: Not Given Senna/Docusate Sodium (Tanya-Colace) 1 tab PO BID [facility] Sennosides (Senokot) 17.2 mg PO Q12H PRN PRN Reason: Moderate Constipation Vitamin D (Vitamin D3) 1,000 unit PO DAILY [facility] Last Admin: 09/18/17 09:23 Dose: 1,000 unit Exam Vital signs: Vital Signs 09/18/17 05:56 Temperature 96.8 F L Pulse Rate 94 H Respiratory Rate 16 Pulse Oximetry 96 Intake & Output 09/17/17 09/18/17 09/18/17 18:59 06:59 18:59 Weight 92.533 kg Other: # Voids 2 Narrative: GENERAL: This is a well-nourished, well-developed patient, flat affect in no apparent distress. CARDIOVASCULAR: Regular rate and rhythm RESPIRATORY: clear through out GASTROINTESTINAL: Abdomen soft, non-tender, nondistended. Normal active bowel sounds MUSCULOSKELETAL: Extremities without clubbing, cyanosis, or edema. NEURO: no focal neurological deficits. Moves all ext x4 Results - Labs CBC & Chem 7: 09/19/17 06:20 09/19/17 06:20 Labs: Laboratory Results - last 24 hr 09/17/17 09/17/17 10:58 10:58 WBC 9.7 RBC 4.75 Hgb 13.9 Hct 40.6 MCV 85.5 MCH 29.3 MCHC 34.3 RDW 14.6 Plt Count 293 MPV 9.2 Neut % (Auto) 81.9 H Lymph % (Auto) 12.6 Gonzales % (Auto) 4.4 Eos % (Auto) 0.4 Baso % (Auto) 0.7 Neut # (Auto) 8.0 H Lymph # (Auto) 1.2 Gonzales # (Auto) 0.4 Eos # (Auto) 0.0 Baso # (Auto) 0.1 WBC Differential . Differential Comment Auto diff final Sodium 141 Potassium 3.8 Chloride 105 Carbon Dioxide 27.0 Anion Gap 9 BUN 14 Creatinine 1.01 H Estimated GFR 56 L Random Glucose 119 H Calcium 9.2 Total Bilirubin 0.4 AST 18 ALT 31 Alkaline Phosphatase 100 Total Protein 7.8 Albumin 3.8 TSH 2.440 Serum Alcohol Less than 3 Assessment and Plan - Assessment (1) Bipolar affective, manic, severe w/ psych Code(s): F31.2 - Bipolar disorder, current episode manic severe with psychotic features Status: Acute Plan: Bipolar disorder with suicidal ideations -Management per psychiatric team Chronic respiratory failure Pulmonary fibrosis COPD Patient is on 5 L oxygen via nasal cannula at home, recommend continuing oxygen via nasal cannula Also recommend patient continue her home prednisone We will add duo nebs as needed GERD Continue patient's home Prevacid 30 mg p.o. daily Hypertension Patient's home metoprolol 25 mg p.o. twice daily has been continued - Attending Attestation Patient examined. Assessment and plan formulated with Sally Gregory PA-C. I agree with the above. Case d/w pt's Health Care Surrogate, Dr. Shun Montiel.
[2017-09-18] MEDS: predniSONE 5 MG Tablet PO SCH (11:47)
[2017-09-18] MEDS: clonazePAM 1 MG Tablet PO SCH (11:48)
[2017-09-18] MEDS: Cilostazol 50 MG Tablet PO SCH ×2 (11:48→20:31)
[2017-09-18] MEDS: Allopurinol 100 MG Tablet PO SCH (11:48)
[2017-09-18] MEDS: FLUoxetine 20 MG Capsule PO SCH (14:35)
--- NOTE | 2017-09-18 14:42 | P.CONPSY ---
Provisional Diagnosis Admission Date: September 17, 2017 14:36 [place] I.: Bipolar affective disorder most recent episode ld with psychosis History of Present Illness Service: Psychiatry Primary Care Provider: Ha Caraballo MD Family Provider: Ha Caraballo MD History of Present Illness: Patient is a 8-year-old white female known to me from prior contact. Patient had been hospitalized under my care at [facility] about 8 years ago. She is also been hospitalized here under Dr. Terry Nuñez and number of years ago. Patient comes here voluntarily accompanied by her brother who is a physician or staff. Patient has a long history of bipolar disorder with decompensation. We will has been doing fairly well recently. Patient has a tragic past history. About 20+ years ago she killed her then and son allow her psychotic state. There was a 20+ year anniversary of that episode within the past 1-2 weeks. Patient also lost her mother who is a stamp classifier for her in November of last year. Patient now lives with her significant other female with some pets in the house. Patient is seen by Dr. Bong Molina in [facility] outpatient psychiatric services. It appears patient has been noncompliant with the medication this is led to increased auditory hallucinations of a command nature of the suicide type gesture within the past 3 days of trying to strangle herself. She has become delusional quite obsessed and is somewhat spiritual manner initially saying that former President Elysia was the antichrist than claiming that her brother was the antichrist. Patient was seen in her room with nurse Lucina. Patient appears to have remembered me from years ago. She was quite guarded with significant thought blocking glancing over her left shoulder. She is vague about auditory hallucinations but did acknowledge them. She was guarded with me responses were slow and delayed but they were present. However when I started to ask her about spirits and demons devils she had a long delay that stared at me intently and thrombin to get out of the room. I have also talked to patient's brother Dr. Virgie Montiel at [phone] who verifies the above. He also states that he is her legal healthcare surrogate. At this time I feel patient does meet criteria for further inpatient psychiatric hospitalization she is quite psychotic and delusional with the attempt at harming herself. At this time I feel she does not have capacity to sign for admission treatment or medications also ask for health care surrogate and guardian advocate as well as second opinion petition supporting Jesus gloria. Dr. Montiel stated he would be willing to be the healthcare surrogate. I did review the med reconciliation we will restart her medications though the Haldol will start at 10 mg twice daily not 3 times daily we will continue her at bedtime Seroquel and her other medical medications. Hopefully this will be fairly short stay we can work with her counselor is also related to the anniversary of the tragedy that occurred 20+ years ago. The patient is a 62 years old woman, domiciled with her mother in [facility], with psychiatric history of schizoaffective disorder, multiple psychiatric hospitalizations, was brought to the hospital voluntarily by her brother, who is a staff physician seeking psychiatric treatment. Apparently the patient has been noncompliant with medications, has been having auditory hallucinations commanding type, suicidal ideation and a suicidal gesture recently, and also very religiously preoccupied. She was consulted to me for second opinion. I find a patient that is calm, cooperative, but suspicious and with a significant blocking thought. The patient reports that she feels better , even though "I know my stomach is bleeding, everything is bleeding inside". She now denies suicidal enemas ideation, she denies visual and auditory hallucinations this moment. The patient is complaining medications no, no significant side effects. [facility] - History History Provided By: Patient, Family Member - Medical History Medical History: Medical History (Last Updated 09/17/17 @ 10:41 by Korina Barron RN) Bipolar disorder Depression Gastroparesis H/O: hysterectomy HTN (hypertension) Pulmonary fibrosis Wears dentures [place] teeth extracted - Surgical History Surgical History: Surgical History (Last Updated 09/17/17 @ 10:41 by Korina Barron RN) History of mastectomy History of tonsillectomy - Tobacco History Second Hand Smoke Exposure: Yes Tobacco Use In Past 30 Days: Yes Smoking Status: Current every day smoker Tobacco Type: E-Cigarettes - Alcohol History How Often Do You Have a Drink Containing Alcohol: Never - Substance Use History Substance History: Active Abuse, Past History - Substance Use Type Marijuana Type: Admits "one toke" 2x days ago Status: Active Route Used: Inhalation Frequency: had some 2 days ago Reason for Use: Get High - Travel History Recent Travel in the [place] Within the Last 8 Weeks: No Recent Travel Out of the Country Within the Last 8 Weeks: No - Immunization History Tetanus Immunization: Unsure Hx Influenza Vaccine This Season: No Medications and Allergies Active Medications: Active Medications Acetaminophen (Tylenol) 650 mg PO Q4H PRN PRN Reason: Pain 1-5 or Temp >101F Hydrocodone Bitart/Acetaminophen ([place] 7.5/325) 1 tab PO Q6H PRN PRN Reason: PAIN 1-10 Al Hydrox/Mg Hydrox/Simethicone (Mag-Al Plus Susp Liq) 30 ml PO Q6H PRN PRN Reason: DYSPEPSIA Al Hydroxide/Mg Hydroxide (Milk Of Magnesia Liq) 30 ml PO Q12H PRN PRN Reason: Mild Constipation Albuterol (Duoneb Neb (Prn)) 1 ampul NEB Q2HR NEB PRN PRN Reason: SHORTNESS OF BREATH/WHEEZING Allopurinol (Zyloprim) 100 mg PO DAILY [facility] Last Admin: 09/18/17 11:48 Dose: 100 mg Atorvastatin Calcium (Lipitor) 20 mg PO DAILY [facility] Last Admin: 09/18/17 09:23 Dose: 20 mg Baclofen (Lioresal) 10 mg PO HS [facility] Last Admin: 09/17/17 20:14 Dose: 10 mg Bisacodyl (Dulcolax Supp) 10 mg RECTAL DAILY PRN PRN Reason: SEVERE CONSITIPATION Cilostazol (Pletal) 50 mg PO BID [facility] Last Admin: 09/18/17 11:48 Dose: 50 mg Clonazepam (Klonopin) 2 mg PO DAILY [facility] Last Admin: 09/18/17 11:48 Dose: 2 mg Diphenhydramine HCl (Benadryl) 50 mg PO HS PRN PRN Reason: INSOMNIA Fluoxetine HCl (Prozac) 40 mg PO DAILY [facility] Last Admin: 09/18/17 14:35 Dose: Not Given Gabapentin (Neurontin) 300 mg PO QID [facility] Last Admin: 09/18/17 09:23 Dose: 300 mg Haloperidol (Haldol) 10 mg PO BID@0900,1800 [facility] Hydroxyzine HCl (Atarax) 50 mg PO Q6H PRN PRN Reason: ANXIETY Lactulose (Lactulose Liq) 30 ml PO DAILY PRN PRN Reason: SEVERE CONSITIPATION Metoprolol Tartrate (Lopressor) 25 mg PO BID [facility] Last Admin: 09/18/17 09:23 Dose: 25 mg Nicotine (Habitrol 21 Mg Patch.24 Hr) 1 patch T-DERMAL DAILY [facility] Last Admin: 09/18/17 09:23 Dose: 1 patch Pantoprazole Sodium (Protonix) 40 mg PO DAILY [facility] Last Admin: 09/18/17 09:23 Dose: 40 mg Patch Removal (Remove Old Patch) 1 each T-DERMAL DAILY [facility] Last Admin: 09/18/17 09:24 Dose: 1 each Prednisone (Deltasone) 5 mg PO DAILY [facility] Last Admin: 09/18/17 11:47 Dose: 5 mg Quetiapine Fumarate (Seroquel) 600 mg PO [facility] Last Admin: 09/17/17 20:16 Dose: Not Given Senna/Docusate Sodium (Tanya-Colace) 1 tab PO BID [facility] Sennosides (Senokot) 17.2 mg PO Q12H PRN PRN Reason: Moderate Constipation Vitamin D (Vitamin D3) 1,000 unit PO DAILY [facility] Last Admin: 09/18/17 09:23 Dose: 1,000 unit Allergies Allergy/AdvReac Type Severity Reaction Status Date / Time aspirin Allergy Severe Nausea/Vomi Unverified 01/02/17 13:25 ting oxycodone Allergy Severe Nausea/Vomi Unverified 01/02/17 13:25 ting sulfamethoxazole Allergy Severe rash Verified 01/02/17 13:25 trimethoprim Allergy Severe rash Verified 01/02/17 13:25 Home Medications Medication Instructions Recorded Confirmed Type allopurinol 100 mg PO DAILY 09/17/17 09/17/17 History atorvastatin [Lipitor] 20 mg PO DAILY 09/17/17 09/17/17 History baclofen 10 mg PO HS 09/17/17 09/17/17 History cholecalciferol (vitamin D3) 1,000 unit PO DAILY 09/17/17 09/17/17 History [Vitamin D3] cilostazol 50 mg PO BID 09/17/17 09/17/17 History clonazepam [Klonopin] 2 mg PO DAILY 09/17/17 09/17/17 History fluoxetine [Prozac] 40 mg PO DAILY 09/17/17 09/17/17 History gabapentin 300 mg PO QID 09/17/17 09/17/17 History haloperidol 10 mg PO TID PRN 09/17/17 09/17/17 History hydrocodone-acetaminophen 1 tab PO Q6H PRN 09/17/17 09/17/17 History lansoprazole [Prevacid] 30 mg PO DAILY 09/17/17 09/17/17 History metoprolol tartrate [Lopressor] 25 mg PO BID 09/17/17 09/17/17 History omega 2-ysx-lgl-fish oil [Fish Oil] 1,000 mg PO HS 09/17/17 09/17/17 History prednisone 5 mg PO DAILY 09/17/17 09/17/17 History quetiapine [Seroquel] 600 mg PO HS 09/17/17 09/17/17 History Exam Vital signs: Vital Signs 09/18/17 05:56 Temperature 96.8 F L Pulse Rate 94 H Respiratory Rate 16 Pulse Oximetry 96 Intake & Output 09/17/17 09/18/17 09/18/17 18:59 06:59 18:59 Weight 92.533 kg Other: # Voids 2 Mental Status Examination Appearance: Appropriate, Disheveled Consciousness: Alert Orientation: Person (Slightly), Place, Date/Time Motor Activity: Other (Patient sitting unable to ascertain gait) Speech: Hesitant, Slow, Other (Marked thought blocking) Language: Adequate Fund of Knowledge: Inadequate Attention and Concentration: Easily distracted Memory: Impaired Mood: Sad, Irritable, Manic (Mixed) Affect: Other (Decreased range and intensity) Thought Process & Associations: Disorganized Thought Content: Hallucinations, Delusional Hallucination Type: Auditory Delusion Type: Paranoid Suicidal Ideation: No (Denies at this) Suicidal Plan: No (Denies at this time) Suicidal Intention: No (Denies at this time) Homicidal Ideation: No Homicidal Plan: No Homicidal Intention: No Insight: Poor Judgment: Poor Assessment and Plan - Assessment (1) Bipolar affective, manic, severe w/ psych Code(s): F31.2 - Bipolar disorder, current episode manic severe with psychotic features Status: Acute - Plan Plan: Estimated LOS: [5] days Patient remains psychotic paranoid delusional with auditory hallucinations. Patient showing no significant insight into her disease. She also been noncompliant with the medication. In spite of the fact that the patient initially signed voluntary it is my opinion that at this time she meets criteria for involuntary hospitalization I will do first opinion request second opinion, I also food she does not have capacity thus I will ask for health care surrogate and guardian advocate. We will contact the patient's brother Dr. Shun Montiel he states he is her healthcare surrogate. We will also have the Doctors Hospitalist assess this lady. I also finished the med reconciliation we will continue medications per her prior hospitalization I have seen and examined this patient, reviewed documentation, I agree and concur with Dr. Padilla's assessment and plan. Consult appreciated. Justification for Continued Inpatient Stay: Continue Dr. Padilla's recommendation
[2017-09-18] MEDS: Haloperidol 5 MG Tablet PO SCH (14:51)
[2017-09-18] MEDS ORDERED: KCL 20 mEq/NACL 0.45% Inj 1,000 ML IV.CONT SCH (17:45)
[2017-09-18] MEDS: Baclofen 10 MG Tablet PO SCH (20:31)
[2017-09-18] MEDS: Senna/Docusate Sodium 8.6/50 MG Tablet PO SCH (20:31)
[2017-09-18] MEDS ORDERED: Non-Formulary Drug (Omega 3-Dha-Epa-Fish Oil [Fish Oil] 1,000 MG) PO SCH (21:00)
[2017-09-18] MEDS ORDERED: Baclofen 10 MG Tablet PO SCH (21:00)
[2017-09-19 08:25] LABS: Baso # (Auto) 0.1 th/mm3 (0.0-0.2); Baso % (Auto) 0.8 % (0.0-2.0); Eos # (Auto) 0.2 th/mm3 (0.0-0.4); Hematocrit 40.6 % (35.0-46.0); Hemoglobin 13.8 gm/dL (11.6-15.3); Lymph # (Auto) 2.4 th/mm3 (1.0-4.8); Lymph % (Auto) 29.4 % (9.0-44.0); Mean Corpuscular HGB Conc 34.1 % (32.0-36.0); Mean Corpuscular Hemoglobin 29.1 pg (27.0-34.0); Mean Corpuscular Volume 85.5 fL (80.0-100.0); Mean Platelet Volume 9.7 fL (7.0-11.0); Mono # (Auto) 0.8 th/mm3 (0.0-0.9); Mono % (Auto) 9.2 % (0.0-8.0); Neut # (Auto) 4.8 th/mm3 (1.8-7.7); Neut % (Auto) 58.6 % (16.0-70.0); Platelet Count 272 th/mm3 (150-450); Red Blood Count 4.75 mil/mm3 (4.00-5.30); Red Cell Distribution Width 14.7 % (11.6-17.2); White Blood Count 8.2 th/mm3 (4.0-11.0)
[2017-09-19 08:35] LABS: Carbon Dioxide 25.4 meq/L (21.0-32.0); Potassium 3.3 meq/L (3.5-5.1)
--- NOTE | 2017-09-19 08:39 | P.PNPSY ---
Subjective Remarks: Patient seen in her room with nurse Beatris, chart review, patient compliant medications. Patient is showing some slight increase in her affect slight improvement in her eye contact. She acknowledges continued auditory hallucinations of a somewhat intrusive and irritating threatening manner. Continue some mild thought blocking. Continue some vigilance paranoia also. Patient did acknowledge her manipulation of both the Haldol and the Seroquel. But she shows a willingness to continue her medications. Patient does deny suicidality at this time. For now continue treatment no change Review of Systems All other systems reviewed negative except as stated in HPI Mental Status Examination Appearance: Appropriate, Disheveled (Improving did shower this morning) Consciousness: Alert Orientation: Person (Slightly), Place, Date/Time Motor Activity: Other (Patient sitting unable to ascertain gait) Speech: Hesitant, Slow, Other (Marked thought blocking) Language: Adequate Fund of Knowledge: Inadequate Attention and Concentration: Easily distracted (Improved) Memory: Impaired Mood: Sad, Irritable, Manic (Improved) Affect: Other (Good range and intensity) Thought Process & Associations: Disorganized (Improved) Thought Content: Hallucinations, Delusional (Improved) Hallucination Type: Auditory (Persists) Delusion Type: Paranoid (Improve) Suicidal Ideation: No (Denies at this) Suicidal Plan: No (Denies at this time) Suicidal Intention: No (Denies at this time) Homicidal Ideation: No Homicidal Plan: No Homicidal Intention: No Insight: Poor Judgment: Poor Assessment and Plan - Assessment (1) Bipolar affective, manic, severe w/ psych Code(s): F31.2 - Bipolar disorder, current episode manic severe with psychotic features Status: Acute - Plan Plan: Manic and psychotic though somewhat improved, compliant medications, continue treatment no change Justification for Continued Inpatient Stay: At this time patient would decompensate a place to a lower level of care Discharge Planning: Return home
[2017-09-19 08:43] LABS: Chol/HDL Ratio 2.26 Ratio
[2017-09-19] MEDS: clonazePAM 1 MG Tablet PO SCH (08:59)
[2017-09-19] MEDS: Cilostazol 50 MG Tablet PO SCH ×2 (08:59→20:57)
[2017-09-19] MEDS: Senna/Docusate Sodium 8.6/50 MG Tablet PO SCH ×2 (09:00→20:56)
[2017-09-19] MEDS: Allopurinol 100 MG Tablet PO SCH (09:00)
[2017-09-19] MEDS: FLUoxetine 20 MG Capsule PO SCH (09:00)
[2017-09-19] MEDS: Gabapentin 300 MG Capsule PO SCH ×4 (09:00→20:57)
[2017-09-19] MEDS: Metoprolol Tartrate 25 MG Tablet PO SCH ×2 (09:00→20:57)
[2017-09-19] MEDS: predniSONE 5 MG Tablet PO SCH (09:01)
[2017-09-19] MEDS: Haloperidol 5 MG Tablet PO SCH ×2 (09:06→18:00)
[2017-09-19] MEDS ORDERED: Potassium Chloride 10 MEQ ER Capsule PO ONE (11:21)
--- NOTE | 2017-09-19 14:29 | P.PNIM ---
Subjective Interval history: No new medical complaints. PO intake remains poor. Physical Exam Vital signs: Vital Signs 09/18/17 18:00 09/19/17 05:44 09/19/17 06:00 Temperature 97.4 F L 97.6 F 97.6 F Pulse Rate 107 H 80 80 Respiratory Rate 20 16 16 Blood Pressure 158/87 H 126/67 126/67 Pulse Oximetry 97 93 L 93 L Intake & Output 09/18/17 09/19/17 09/19/17 18:59 06:59 18:59 Intake Total 240 / 240 720 / 720 Balance 240 / 240 720 / 720 Intake: Oral 240 / 240 720 / 720 Other: # Voids 1 Narrative: GENERAL: This is a well-nourished, well-developed patient, in no apparent distress. CARDIOVASCULAR: Regular rate and rhythm without murmurs, gallops, or rubs. RESPIRATORY: Clear to auscultation. Breath sounds equal bilaterally. No wheezes , rales, or rhonchi. GASTROINTESTINAL: Abdomen soft, non-tender, nondistended. Normal active bowel sounds MUSCULOSKELETAL: Extremities without clubbing, cyanosis, or edema. NEURO: Alert, PAGE Results - Labs CBC & Chem 7: 09/19/17 06:20 09/20/17 09:05 Assessment and Plan - Assessment (1) Bipolar affective, manic, severe w/ psych Code(s): F31.2 - Bipolar disorder, current episode manic severe with psychotic features Status: Acute Plan: Bipolar disorder with suicidal ideations -Management per psychiatric team Chronic respiratory failure Pulmonary fibrosis COPD Patient is on 5 L oxygen via nasal cannula at home, recommend continuing oxygen via nasal cannula Also recommend patient continue her home prednisone We will add duo nebs as needed GERD Continue patient's home Prevacid 30 mg p.o. daily Hypertension Patient's home metoprolol 25 mg p.o. twice daily has been continued Dehydration -poor PO intake d/t psychiatric illness - encourage PO intake - repeat BMP/Mag 09/20/17
[2017-09-19 16:35] LABS: Hemoglobin A1c 5.4 % (4.3-6.0)
[2017-09-19] MEDS: Baclofen 10 MG Tablet PO SCH (20:57)
[2017-09-20] MEDS: clonazePAM 1 MG Tablet PO SCH (08:58)
[2017-09-20] MEDS: FLUoxetine 20 MG Capsule PO SCH (08:58)
[2017-09-20] MEDS: Gabapentin 300 MG Capsule PO SCH ×3 (08:58→20:47)
[2017-09-20] MEDS: Metoprolol Tartrate 25 MG Tablet PO SCH ×2 (08:58→20:47)
[2017-09-20] MEDS: Cilostazol 50 MG Tablet PO SCH ×2 (08:59→20:47)
[2017-09-20] MEDS: Senna/Docusate Sodium 8.6/50 MG Tablet PO SCH ×2 (08:59→20:47)
[2017-09-20] MEDS: predniSONE 5 MG Tablet PO SCH (08:59)
[2017-09-20] MEDS: Allopurinol 100 MG Tablet PO SCH (09:00)
[2017-09-20] MEDS: Haloperidol 5 MG Tablet PO SCH ×2 (09:16→18:44)
[2017-09-20 10:04] LABS: Calcium 9.1 mg/dL (8.5-10.1); Carbon Dioxide 29.5 meq/L (21.0-32.0); Magnesium 2.1 mg/dL (1.5-2.5); Potassium 3.7 meq/L (3.5-5.1)
--- NOTE | 2017-09-20 13:17 | P.PNPSY ---
Subjective Remarks: Reviewed electronic medical records and discussed case with staff. Follow-up was conducted in patient's room. Patient sitting on bed awake and alert. She reports that she is sleeping well and has had a good appetite. She denies any complaints today. Her mood is good and her affect is euthymic. She remains discharge focused. Staff reports she has been initiating conversation and maintaining good eye contact. Mental Status Examination Appearance: Appropriate, Disheveled (Improving did shower this morning) Consciousness: Alert Orientation: Person (Slightly), Place, Date/Time Motor Activity: Other (Patient sitting unable to ascertain gait) Speech: Hesitant, Slow, Other (Marked thought blocking) Language: Adequate Fund of Knowledge: Inadequate Attention and Concentration: Easily distracted (Improved) Memory: Impaired Mood: Sad, Irritable, Manic (Improved) Affect: Other (Good range and intensity) Thought Process & Associations: Disorganized (Improved) Thought Content: Hallucinations, Delusional (Improved) Hallucination Type: Auditory (Persists) Delusion Type: Paranoid (Improve) Suicidal Ideation: No (Denies at this) Suicidal Plan: No (Denies at this time) Suicidal Intention: No (Denies at this time) Homicidal Ideation: No Homicidal Plan: No Homicidal Intention: No Insight: Poor Judgment: Poor Assessment and Plan - Assessment (1) Bipolar affective, manic, severe w/ psych Code(s): F31.2 - Bipolar disorder, current episode manic severe with psychotic features Status: Acute - Plan Plan: Patient will be reevaluated Friday by the attending psychiatrist. Continue with current treatment plan. Justification for Continued Inpatient Stay: Moving this patient to a less restrictive environment would likely result in decompensation.
--- NOTE | 2017-09-20 17:07 | P.PNIM ---
Subjective Interval history: Pt interviewed and examined while she was eating dinner. No new medical complaints. Physical Exam Vital signs: Vital Signs 09/19/17 18:06 09/20/17 05:44 Temperature 97.5 F L 97.4 F L Pulse Rate 91 H 73 Respiratory Rate 18 16 Blood Pressure 102/57 L Pulse Oximetry 98 Narrative: GENERAL: This is a well-nourished, well-developed patient, in no apparent distress. CARDIOVASCULAR: Regular rate and rhythm without murmurs, gallops, or rubs. RESPIRATORY: Clear to auscultation. Breath sounds equal bilaterally. No wheezes , rales, or rhonchi. GASTROINTESTINAL: Abdomen soft, non-tender, nondistended. Normal active bowel sounds MUSCULOSKELETAL: Extremities without clubbing, cyanosis, or edema. NEURO: Alert and oriented x 3, PAGE Results - Labs CBC & Chem 7: 09/19/17 06:20 09/20/17 09:05 Laboratory Results - last 24 hr 09/19/17 09/20/17 06:20 09:05 Sodium 142 Potassium 3.7 Chloride 105 Carbon Dioxide 29.5 Anion Gap 8 BUN 25 H Creatinine 1.07 H Estimated GFR 52 L Random Glucose 128 H Hemoglobin A1c 5.4 Calcium 9.1 Magnesium 2.1 Assessment and Plan - Assessment (1) Bipolar affective, manic, severe w/ psych Code(s): F31.2 - Bipolar disorder, current episode manic severe with psychotic features Status: Acute Plan: Bipolar disorder with suicidal ideations -Management per psychiatric team - anticipate d/c to home in next 2-3d when okay with Psychiatry Chronic respiratory failure Pulmonary fibrosis COPD Patient is on 5 L oxygen via nasal cannula at home, recommend continuing oxygen via nasal cannula Also recommend patient continue her home prednisone We will add duo nebs as needed GERD Continue patient's home Prevacid 30 mg p.o. daily Hypertension Patient's home metoprolol 25 mg p.o. twice daily has been continued Dehydration -poor PO intake d/t psychiatric illness - encourage PO intake
[2017-09-20] MEDS: Baclofen 10 MG Tablet PO SCH (20:48)
[2017-09-21] MEDS: clonazePAM 1 MG Tablet PO SCH (09:48)
[2017-09-21] MEDS: Haloperidol 5 MG Tablet PO SCH ×2 (09:49→09:52)
[2017-09-21] MEDS: FLUoxetine 20 MG Capsule PO SCH (09:49)
[2017-09-21] MEDS: Metoprolol Tartrate 25 MG Tablet PO SCH ×2 (09:50→20:49)
[2017-09-21] MEDS: Cilostazol 50 MG Tablet PO SCH ×2 (09:50→20:49)
[2017-09-21] MEDS: Senna/Docusate Sodium 8.6/50 MG Tablet PO SCH ×2 (09:50→20:49)
[2017-09-21] MEDS: Allopurinol 100 MG Tablet PO SCH (09:50)
[2017-09-21] MEDS: predniSONE 5 MG Tablet PO SCH (09:50)
[2017-09-21] MEDS: Gabapentin 300 MG Capsule PO SCH ×4 (09:51→20:49)
--- NOTE | 2017-09-21 19:40 | P.PNPSY ---
Subjective Remarks: Reviewed electronic medical records and discussed case with staff. Follow-up was conducted in patient's room. She is found lying on her bed awake and alert. Nurse reported that she became agitated earlier today stating that she "does not feel she is ready to go home". When I asked her why she was anxious about going home she stated that she is "overwhelmed with putting the whole puzzle together". Could not get her to elaborate further on what exactly that meant. She reports that she is sleeping well and her appetite has been good. She complains that her sciatica pain is still bothering her. I suggested to her doing gentle stretches in her bed and explained to her how to do 2 of them ( cat and cow). Mental Status Examination Appearance: Appropriate, Disheveled (Improving did shower this morning) Consciousness: Alert Orientation: Person (Slightly), Place, Date/Time Motor Activity: Other (Patient sitting unable to ascertain gait) Speech: Hesitant, Slow, Other (Marked thought blocking) Language: Adequate Fund of Knowledge: Inadequate Attention and Concentration: Easily distracted (Improved) Memory: Impaired Mood: Sad, Irritable, Manic (Improved) Affect: Other (Good range and intensity) Thought Process & Associations: Disorganized (Improved) Thought Content: Hallucinations, Delusional (Improved) Hallucination Type: Auditory (Persists) Delusion Type: Paranoid (Improve) Suicidal Ideation: No (Denies at this) Suicidal Plan: No (Denies at this time) Suicidal Intention: No (Denies at this time) Homicidal Ideation: No Homicidal Plan: No Homicidal Intention: No Insight: Poor Judgment: Poor Assessment and Plan - Assessment (1) Bipolar affective, manic, severe w/ psych Code(s): F31.2 - Bipolar disorder, current episode manic severe with psychotic features Status: Acute - Plan Plan: Patient will be reevaluated tomorrow by the attending psychiatrist. Continue with current treatment plan. Justification for Continued Inpatient Stay: Moving this patient to a less restrictive environment would likely result in decompensation.
[2017-09-21] MEDS: Baclofen 10 MG Tablet PO SCH (20:49)
[2017-09-22] MEDS: Senna/Docusate Sodium 8.6/50 MG Tablet PO SCH ×2 (09:49→21:33)
[2017-09-22] MEDS: Metoprolol Tartrate 25 MG Tablet PO SCH ×2 (09:49→21:33)
[2017-09-22] MEDS: Cilostazol 50 MG Tablet PO SCH ×2 (09:49→21:33)
[2017-09-22] MEDS: clonazePAM 1 MG Tablet PO SCH (09:49)
[2017-09-22] MEDS: Gabapentin 300 MG Capsule PO SCH ×4 (09:49→21:33)
[2017-09-22] MEDS: predniSONE 5 MG Tablet PO SCH (09:49)
[2017-09-22] MEDS: FLUoxetine 20 MG Capsule PO SCH (09:50)
[2017-09-22] MEDS: Allopurinol 100 MG Tablet PO SCH (09:50)
[2017-09-22] MEDS: Haloperidol 5 MG Tablet PO SCH ×2 (09:51→18:45)
--- NOTE | 2017-09-22 11:55 | P.PNPSY ---
Subjective Remarks: Patient seen in her room with nurse Marcella, chart reviewed, patient compliant medications. Patient calm pleasant more reactive with better eye contact occasional small smile. She saw remains vigilant paranoid. The auditory hallucinations remain but they are somewhat softer though still disturbing to the patient. For now continue treatment Review of Systems All other systems reviewed negative except as stated in HPI Mental Status Examination Appearance: Appropriate, Disheveled (Improving did shower this morning) Consciousness: Alert Orientation: Person (Slightly), Place, Date/Time Motor Activity: Other (Patient sitting unable to ascertain gait) Speech: Hesitant, Slow, Other (Marked thought blocking) Language: Adequate Fund of Knowledge: Inadequate Attention and Concentration: Easily distracted (Improved) Memory: Impaired Mood: Sad, Irritable, Manic (Improved) Affect: Other (Good range and intensity) Thought Process & Associations: Disorganized (Improved) Thought Content: Hallucinations, Delusional (Improved) Hallucination Type: Auditory (Persists) Delusion Type: Paranoid (Improve) Suicidal Ideation: No (Denies at this) Suicidal Plan: No (Denies at this time) Suicidal Intention: No (Denies at this time) Homicidal Ideation: No Homicidal Plan: No Homicidal Intention: No Insight: Poor Judgment: Poor Assessment and Plan - Assessment (1) Bipolar affective, manic, severe w/ psych Code(s): F31.2 - Bipolar disorder, current episode manic severe with psychotic features Status: Acute - Plan Plan: Patient continues psychotic though the paranoia and the vigilance is softening somewhat and is still present. For now continue treatment Justification for Continued Inpatient Stay: At this time patient would decompensate a place to a lower level of care Discharge Planning: To be determined probable return home
[2017-09-22] MEDS: Baclofen 10 MG Tablet PO SCH (21:33)
[2017-09-23] MEDS: predniSONE 5 MG Tablet PO SCH (09:40)
[2017-09-23] MEDS: FLUoxetine 20 MG Capsule PO SCH (09:40)
[2017-09-23] MEDS: Haloperidol 5 MG Tablet PO SCH ×3 (09:40→18:30)
[2017-09-23] MEDS: Gabapentin 300 MG Capsule PO SCH ×4 (09:40→21:32)
[2017-09-23] MEDS: Metoprolol Tartrate 25 MG Tablet PO SCH ×2 (09:40→21:32)
[2017-09-23] MEDS: Senna/Docusate Sodium 8.6/50 MG Tablet PO SCH ×2 (09:40→21:32)
[2017-09-23] MEDS: clonazePAM 1 MG Tablet PO SCH (09:40)
[2017-09-23] MEDS: Cilostazol 50 MG Tablet PO SCH ×2 (09:40→21:32)
[2017-09-23] MEDS: Allopurinol 100 MG Tablet PO SCH (09:41)
--- NOTE | 2017-09-23 12:24 | P.PNPSY ---
Subjective Remarks: Patient is seen in her room with nurse Marcella, chart reviewed, patient compliant medication. Patient laying quietly in bed with covers to her chin her lunch sitting beside her about a half eaten. She says she is feeling somewhat better although she appears somewhat vigilant and guarded. She can continue sustained voices are going away but today it appears as if she is responding somewhat to internal stimuli. For now continue treatment no change Review of Systems All other systems reviewed negative except as stated in HPI Mental Status Examination Appearance: Appropriate, Disheveled (Improving did shower this morning) Consciousness: Alert Orientation: Person (Slightly), Place, Date/Time Motor Activity: Other (Patient sitting unable to ascertain gait) Speech: Hesitant, Slow, Other (Marked thought blocking) Language: Adequate Fund of Knowledge: Inadequate Attention and Concentration: Easily distracted (Improved) Memory: Impaired Mood: Sad, Irritable, Manic (Improved) Affect: Other (Good range and intensity) Thought Process & Associations: Disorganized (Improved) Thought Content: Hallucinations, Delusional (Improved) Hallucination Type: Auditory (Persists) Delusion Type: Paranoid (Improve) Suicidal Ideation: No (Denies at this) Suicidal Plan: No (Denies at this time) Suicidal Intention: No (Denies at this time) Homicidal Ideation: No Homicidal Plan: No Homicidal Intention: No Insight: Poor Judgment: Poor Assessment and Plan - Assessment (1) Bipolar affective, manic, severe w/ psych Code(s): F31.2 - Bipolar disorder, current episode manic severe with psychotic features Status: Acute - Plan Plan: Patient remained somewhat psychotic with a mean he has softened. She still vigilant and paranoid. Compliant medication Justification for Continued Inpatient Stay: At this time patient would decompensate if placed in a lower level of care Discharge Planning: Return home with significant other
[2017-09-23] MEDS: Baclofen 10 MG Tablet PO SCH (22:37)
[2017-09-24] MEDS: Gabapentin 300 MG Capsule PO SCH ×4 (09:31→21:41)
[2017-09-24] MEDS: Senna/Docusate Sodium 8.6/50 MG Tablet PO SCH ×2 (09:31→21:41)
[2017-09-24] MEDS: Cilostazol 50 MG Tablet PO SCH ×2 (09:32→21:41)
[2017-09-24] MEDS: Allopurinol 100 MG Tablet PO SCH (09:33)
[2017-09-24] MEDS: clonazePAM 1 MG Tablet PO SCH (09:33)
[2017-09-24] MEDS: FLUoxetine 20 MG Capsule PO SCH (09:33)
[2017-09-24] MEDS: predniSONE 5 MG Tablet PO SCH (09:34)
[2017-09-24] MEDS: Haloperidol 5 MG Tablet PO SCH (09:34)
[2017-09-24] MEDS: Metoprolol Tartrate 25 MG Tablet PO SCH ×2 (09:34→21:41)
--- NOTE | 2017-09-24 14:56 | P.PNPSY ---
Subjective Remarks: Patient seen in her room with nurse Beatris and counselor Ansley, chart reviewed, patient compliant medications. Patient states she still feels some irritability paranoia vigilance around various activities during the day. She states she did feel better when she was on Haldol 3 times a day. We will increase Haldol to 10 mg 3 times daily 8 AM 2 PM and 8 PM we will continue the Seroquel at at bedtime. Patient also asked about possible Haldol decanoate. This may further would not be appropriate for her patient is showing good cooperation and compliance with the medication and treatment at this time feel patient does have the capacity to sign for this admission along with medications less I will lift the Jesus act allow the patient signed voluntary. Review of Systems All other systems reviewed negative except as stated in HPI Mental Status Examination Appearance: Appropriate Consciousness: Alert Orientation: Person (Slightly), Place, Date/Time Motor Activity: Other (Patient sitting unable to ascertain gait) Speech: Hesitant (Improved), Slow (Improved improved) Language: Adequate Fund of Knowledge: Adequate Attention and Concentration: Easily distracted (Improved) Memory: Impaired Mood: Sad (Improved), Manic (Improved) Affect: Other (Good range and intensity) Thought Process & Associations: Disorganized (Improved) Thought Content: Hallucinations, Delusional (Improved) Hallucination Type: Auditory (Denies today) Delusion Type: Paranoid (Improve) Suicidal Ideation: No (Denies at this) Suicidal Plan: No (Denies at this time) Suicidal Intention: No (Denies at this time) Homicidal Ideation: No Homicidal Plan: No Homicidal Intention: No Insight: Poor Judgment: Poor Assessment and Plan - Assessment (1) Bipolar affective, manic, severe w/ psych Code(s): F31.2 - Bipolar disorder, current episode manic severe with psychotic features Status: Acute - Plan Plan: Patient continues somewhat delusional vigilant and paranoid. Please see medication adjustment above. I also feel patient has capacity at this time will lift Jesus act low patient signed voluntary Justification for Continued Inpatient Stay: At this time patient would decompensate a place to the lower level of care Discharge Planning: Return home with significant other
[2017-09-24] MEDS: Baclofen 10 MG Tablet PO SCH (21:41)
[2017-09-25] MEDS: Gabapentin 300 MG Capsule PO SCH ×4 (09:43→20:24)
[2017-09-25] MEDS: clonazePAM 1 MG Tablet PO SCH (09:43)
[2017-09-25] MEDS: Allopurinol 100 MG Tablet PO SCH (09:43)
[2017-09-25] MEDS: Senna/Docusate Sodium 8.6/50 MG Tablet PO SCH ×2 (09:44→20:24)
[2017-09-25] MEDS: Metoprolol Tartrate 25 MG Tablet PO SCH ×2 (09:45→20:24)
[2017-09-25] MEDS: FLUoxetine 20 MG Capsule PO SCH (09:45)
[2017-09-25] MEDS: Cilostazol 50 MG Tablet PO SCH ×2 (09:46→20:24)
[2017-09-25] MEDS: predniSONE 5 MG Tablet PO SCH (09:46)
--- NOTE | 2017-09-25 10:56 | P.PNPSY ---
Subjective Remarks: Patient seen and carmona with floor staff chart reviewed, patient compliant medications. Patient continues somewhat med seeking manipulating. She states voices just about gone. Her vigilance and mild paranoia persists but also are softening. She denies suicidality at this time. For now continue treatment Review of Systems All other systems reviewed negative except as stated in HPI Mental Status Examination Appearance: Appropriate Consciousness: Alert Orientation: Person (Slightly), Place, Date/Time Motor Activity: Other (Patient sitting unable to ascertain gait) Speech: Hesitant (Improved), Slow (Improved improved) Language: Adequate Fund of Knowledge: Adequate Attention and Concentration: Easily distracted (Improved) Memory: Impaired Mood: Sad (Improved), Manic (Improved) Affect: Other (Good range and intensity) Thought Process & Associations: Disorganized (Improved) Thought Content: Hallucinations, Delusional (Improved) Hallucination Type: Auditory (Denies today) Delusion Type: Paranoid (Improve) Suicidal Ideation: No (Denies at this) Suicidal Plan: No (Denies at this time) Suicidal Intention: No (Denies at this time) Homicidal Ideation: No Homicidal Plan: No Homicidal Intention: No Insight: Poor Judgment: Poor Assessment and Plan - Assessment (1) Bipolar affective, manic, severe w/ psych Code(s): F31.2 - Bipolar disorder, current episode manic severe with psychotic features Status: Acute - Plan Plan: Patient's psychosis is softening, Justification for Continued Inpatient Stay: At this time patient would decompensate a place to a lower level of care Discharge Planning: Return home with significant other
[2017-09-25] MEDS: Baclofen 10 MG Tablet PO SCH (20:24)
[2017-09-26] MEDS: Allopurinol 100 MG Tablet PO SCH (09:53)
[2017-09-26] MEDS: FLUoxetine 20 MG Capsule PO SCH (09:53)
[2017-09-26] MEDS: Gabapentin 300 MG Capsule PO SCH ×4 (09:54→21:33)
[2017-09-26] MEDS: clonazePAM 1 MG Tablet PO SCH (09:54)
[2017-09-26] MEDS: Senna/Docusate Sodium 8.6/50 MG Tablet PO SCH ×2 (09:54→21:32)
[2017-09-26] MEDS: predniSONE 5 MG Tablet PO SCH (09:54)
[2017-09-26] MEDS: Metoprolol Tartrate 25 MG Tablet PO SCH ×2 (09:54→21:34)
[2017-09-26] MEDS: Cilostazol 50 MG Tablet PO SCH ×2 (09:54→21:32)
--- NOTE | 2017-09-26 11:06 | P.PNPSY ---
Subjective Remarks: Patient seen in her room with floor staff, chart reviewed, patient compliant medications. Patient calm pleasant with me states the voices continue to diminish, she is less vigilant less paranoid and less patience. She states she slept well last night. When she is feeling better and has had a good conversation with his significant other. For now continue treatment consider discharge after the weekend Review of Systems All other systems reviewed negative except as stated in HPI Mental Status Examination Appearance: Appropriate Consciousness: Alert Orientation: Person (Slightly), Place, Date/Time Motor Activity: Other (Patient sitting unable to ascertain gait) Speech: Hesitant (Improved), Slow (Improved improved) Language: Adequate Fund of Knowledge: Adequate Attention and Concentration: Easily distracted (Improved) Memory: Impaired Mood: Sad (Improved), Manic (Improved) Affect: Other (Good range and intensity) Thought Process & Associations: Disorganized (Improved) Thought Content: Hallucinations, Delusional (Improved) Hallucination Type: Auditory (Denies today) Delusion Type: Paranoid (Improve) Suicidal Ideation: No (Denies at this) Suicidal Plan: No (Denies at this time) Suicidal Intention: No (Denies at this time) Homicidal Ideation: No Homicidal Plan: No Homicidal Intention: No Insight: Poor Judgment: Poor Assessment and Plan - Assessment (1) Bipolar affective, manic, severe w/ psych Code(s): F31.2 - Bipolar disorder, current episode manic severe with psychotic features Status: Acute - Plan Plan: Patient's psychosis is slowly resolving, she is compliant medication Justification for Continued Inpatient Stay: At this time patient would decompensate a place to a lower level of care Discharge Planning: Return home with significant other
[2017-09-26] MEDS: Baclofen 10 MG Tablet PO SCH (21:32)
[2017-09-27] MEDS: Senna/Docusate Sodium 8.6/50 MG Tablet PO SCH ×2 (08:23→20:25)
[2017-09-27] MEDS: Metoprolol Tartrate 25 MG Tablet PO SCH ×2 (08:23→20:24)
[2017-09-27] MEDS: Gabapentin 300 MG Capsule PO SCH ×4 (08:23→20:25)
[2017-09-27] MEDS: Cilostazol 50 MG Tablet PO SCH ×2 (08:23→20:25)
[2017-09-27] MEDS: Allopurinol 100 MG Tablet PO SCH (08:23)
[2017-09-27] MEDS: predniSONE 5 MG Tablet PO SCH (08:23)
[2017-09-27] MEDS: FLUoxetine 20 MG Capsule PO SCH (08:23)
[2017-09-27] MEDS: clonazePAM 1 MG Tablet PO SCH (08:24)
--- NOTE | 2017-09-27 17:03 | P.PNPSY ---
Subjective Remarks: Patient was seen and case discussed with nursing. Patient is pleasant and cooperative with exam. She is complaining of mild dizziness especially when she bends down. We will get a set of orthostatic vitals and asked the medical team to evaluate her dizziness tomorrow. She denies suicidal or homicidal ideation intent or plan. Mental Status Examination Appearance: Appropriate Consciousness: Alert Orientation: Person (Slightly), Place, Date/Time Motor Activity: Other (Patient sitting unable to ascertain gait) Speech: Hesitant (Improved), Slow (Improved improved) Language: Adequate Fund of Knowledge: Adequate Attention and Concentration: Easily distracted (Improved) Memory: Impaired Mood: Sad (Improved), Manic (Improved) Affect: Other (Good range and intensity) Thought Process & Associations: Disorganized (Improved) Thought Content: Hallucinations, Delusional (Improved) Hallucination Type: Auditory (Denies today) Delusion Type: Paranoid (Improve) Suicidal Ideation: No (Denies at this) Suicidal Plan: No (Denies at this time) Suicidal Intention: No (Denies at this time) Homicidal Ideation: No Homicidal Plan: No Homicidal Intention: No Insight: Poor Judgment: Poor Assessment and Plan - Assessment (1) Bipolar affective, manic, severe w/ psych Code(s): F31.2 - Bipolar disorder, current episode manic severe with psychotic features Status: Acute - Plan Plan: Orthostatic vital signs Justification for Continued Inpatient Stay: Patient would decompensate in a less restrictive setting
[2017-09-27] MEDS: Baclofen 10 MG Tablet PO SCH (20:25)
[2017-09-28] MEDS: Cilostazol 50 MG Tablet PO SCH ×2 (08:09→21:00)
[2017-09-28] MEDS: clonazePAM 1 MG Tablet PO SCH (08:09)
[2017-09-28] MEDS: Senna/Docusate Sodium 8.6/50 MG Tablet PO SCH ×2 (08:10→21:00)
[2017-09-28] MEDS: Metoprolol Tartrate 25 MG Tablet PO SCH ×2 (08:10→21:00)
[2017-09-28] MEDS: Gabapentin 300 MG Capsule PO SCH ×4 (08:10→21:00)
[2017-09-28] MEDS: Allopurinol 100 MG Tablet PO SCH (08:10)
[2017-09-28] MEDS: predniSONE 5 MG Tablet PO SCH (08:10)
[2017-09-28] MEDS: FLUoxetine 20 MG Capsule PO SCH (08:10)
--- NOTE | 2017-09-28 16:18 | P.PNPSY ---
Subjective Remarks: Patient was seen and case discussed with nursing. Brother was in the room for the interview. Brother notes profound improvement in the patient compared to admission. Patient is bright and pleasant during the interview. She denies any psychotic symptoms and is tolerating her medications well. Behaving well on the unit Mental Status Examination Appearance: Appropriate Consciousness: Alert Orientation: Person (Slightly), Place, Date/Time Motor Activity: Other (Patient sitting unable to ascertain gait) Speech: Unremarkable Language: Adequate Fund of Knowledge: Adequate Attention and Concentration: Adequate Memory: Impaired Mood: Sad Affect: Other (Good range and intensity) Thought Process & Associations: Intact Thought Content: Appropriate Hallucination Type: None Delusion Type: None Suicidal Ideation: No (Denies at this) Suicidal Plan: No (Denies at this time) Suicidal Intention: No (Denies at this time) Homicidal Ideation: No Homicidal Plan: No Homicidal Intention: No Insight: Poor Judgment: Poor Assessment and Plan - Assessment (1) Bipolar affective, manic, severe w/ psych Code(s): F31.2 - Bipolar disorder, current episode manic severe with psychotic features Status: Acute - Plan Plan: Orthostatic vital signs Justification for Continued Inpatient Stay: Patient would decompensate in a less restrictive setting
[2017-09-28] MEDS: Baclofen 10 MG Tablet PO SCH (21:00)
[2017-09-29] MEDS: Allopurinol 100 MG Tablet PO SCH (09:51)
[2017-09-29] MEDS: Metoprolol Tartrate 25 MG Tablet PO SCH ×2 (09:51→21:16)
[2017-09-29] MEDS: clonazePAM 1 MG Tablet PO SCH (09:51)
[2017-09-29] MEDS: FLUoxetine 20 MG Capsule PO SCH (09:52)
[2017-09-29] MEDS: predniSONE 5 MG Tablet PO SCH (09:52)
[2017-09-29] MEDS: Cilostazol 50 MG Tablet PO SCH ×2 (09:52→21:16)
[2017-09-29] MEDS: Gabapentin 300 MG Capsule PO SCH ×4 (09:52→21:16)
[2017-09-29] MEDS: Senna/Docusate Sodium 8.6/50 MG Tablet PO SCH ×2 (09:52→21:16)
--- NOTE | 2017-09-29 20:58 | P.PNPSY ---
Subjective Remarks: Patient seen for follow, chart reviewed. Discussion nursing staff reported the patient improving, denying any perceptional services, denying any suicide ideation and compliant with treatment, cooperative with staff. Patient was found sitting in hospital bed noted B, cooperative. Patient states that she is feeling better over the weekend, tolerating medications well, denying any further suicidal ideations or perceptual disturbances. Review of Systems All other systems reviewed negative except as stated in HPI Mental Status Examination Appearance: Appropriate Consciousness: Alert Orientation: Person (Slightly), Place, Date/Time Motor Activity: Other (Patient sitting unable to ascertain gait) Speech: Unremarkable Language: Adequate Fund of Knowledge: Adequate Attention and Concentration: Adequate Memory: Impaired Mood: Appropriate Affect: Appropriate Thought Process & Associations: Intact Thought Content: Appropriate Hallucination Type: None Delusion Type: None Suicidal Ideation: No Suicidal Plan: No Suicidal Intention: No Homicidal Ideation: No Homicidal Plan: No Homicidal Intention: No Insight: Fair Judgment: Impulsive Assessment and Plan - Assessment (1) Bipolar affective, manic, severe w/ psych Code(s): F31.2 - Bipolar disorder, current episode manic severe with psychotic features Status: Acute - Plan Plan: Patient noted with appropriate interaction during interview, not noted to be internally preoccupied, denying any perceptional disturbances or delusions, denying any suicidal homicidal ideations. Continue current treatment. Continue to monitor mood and behavior. Discharge planning in progress. Justification for Continued Inpatient Stay: At risk for further decompensation if at lower level of care.
[2017-09-29] MEDS: Baclofen 10 MG Tablet PO SCH (21:16)
[2017-09-30 06:03] VITALS: BP 119/59; PULSE 70; RESP 15; TEMP 97.4; O2SAT 91
[2017-09-30] MEDS: Gabapentin 300 MG Capsule PO SCH ×2 (10:00→15:31)
[2017-09-30] MEDS: Cilostazol 50 MG Tablet PO SCH (10:00)
[2017-09-30] MEDS: FLUoxetine 20 MG Capsule PO SCH (10:00)
[2017-09-30] MEDS: Metoprolol Tartrate 25 MG Tablet PO SCH (10:00)
[2017-09-30] MEDS: predniSONE 5 MG Tablet PO SCH (10:01)
[2017-09-30] MEDS: Allopurinol 100 MG Tablet PO SCH (10:01)
[2017-09-30] MEDS: Senna/Docusate Sodium 8.6/50 MG Tablet PO SCH (10:01)
[2017-09-30] MEDS: clonazePAM 1 MG Tablet PO SCH (10:01)
--- NOTE | 2017-09-30 16:54 | P.DSPSY ---
Psychiatry Discharge Summary Inpatient Psychiatric care?: Yes Advance Directives: Yes Mental Health Advance Directive: No Health Care Proxy: No - Admission Admission Date: September 17, 2017 14:36 - Admission Diagnosis (1) Bipolar affective, manic, severe w/ psych Code(s): F31.2 - Bipolar disorder, current episode manic severe with psychotic features Brief History: Patient is a 8-year-old white female known to me from prior contact. Patient had been hospitalized under my care at [facility] about 8 years ago. She is also been hospitalized here under Dr. Terry Nuñez and number of years ago. Patient comes here voluntarily accompanied by her brother who is a physician or staff. Patient has a long history of bipolar disorder with decompensation. We will has been doing fairly well recently. Patient has a tragic past history. About 20+ years ago she killed her then and son allow her psychotic state. There was a 20+ year anniversary of that episode within the past 1-2 weeks. Patient also lost her mother who is a finish patcher for her in November of last year. Patient now lives with her significant other female with some pets in the house. Patient is seen by Dr. Bong Molina in [facility] outpatient psychiatric services. It appears patient has been noncompliant with the medication this is led to increased auditory hallucinations of a command nature of the suicide type gesture within the past 3 days of trying to strangle herself. She has become delusional quite obsessed and is somewhat spiritual manner initially saying that former President Elysia was the antichrist than claiming that her brother was the antichrist. Patient was seen in her room with nurse Lucina. Patient appears to have remembered me from years ago. She was quite guarded with significant thought blocking glancing over her left shoulder. She is vague about auditory hallucinations but did acknowledge them. She was guarded with me responses were slow and delayed but they were present. However when I started to ask her about spirits and demons devils she had a long delay that stared at me intently and thrombin to get out of the room. I have also talked to patient's brother Dr. Virgie Montiel at [phone] who verifies the above. He also states that he is her legal healthcare surrogate. At this time I feel patient does meet criteria for further inpatient psychiatric hospitalization she is quite psychotic and delusional with the attempt at harming herself. At this time I feel she does not have capacity to sign for admission treatment or medications also ask for health care surrogate and guardian advocate as well as second opinion petition supporting Jesus act. Dr. Montiel stated he would be willing to be the healthcare surrogate. I did review the med reconciliation we will restart her medications though the Haldol will start at 10 mg twice daily not 3 times daily we will continue her at bedtime Seroquel and her other medical medications. Hopefully this will be fairly short stay we can work with her counselor is also related to the anniversary of the tragedy that occurred 20+ years ago. Tobacco Use In Past 30 Days: Yes How Often Do You Have a Drink Containing Alcohol: Never Hospital Course: Patient's hospital course was uneventful, patient showed cooperation with medication from day 1. At the cooperation with medication the adjustment of the medicines up to the prior prescribing those the auditory hallucinations have essentially resolved with the paranoia and vigilance have also resolved. She is calm cooperative compliant with the medication she feels safe with going home with her significant other thus patient be discharged today with Rx times a month to follow-up [facility] Dr. Bong Molina - Discharge Discharge Date: 09/30/17 - Discharge Diagnosis (1) Bipolar affective, manic, severe w/ psych Code(s): F31.2 - Bipolar disorder, current episode manic severe with psychotic features Status: Acute Discharge Disposition: Home - Discharge Instructions Discharge Diet: Regular Diet Activities You Can Perform: Regular- No Restrictions - Discharge Time > 30 minutes Mental Status Examination Appearance: Appropriate Consciousness: Alert Orientation: Person (Slightly), Place, Date/Time Motor Activity: Other (Patient sitting unable to ascertain gait) Speech: Unremarkable Language: Adequate Fund of Knowledge: Adequate Attention and Concentration: Adequate Memory: Impaired Mood: Appropriate Affect: Appropriate Thought Process & Associations: Intact Thought Content: Appropriate Hallucination Type: None Delusion Type: None Suicidal Ideation: No Suicidal Plan: No Suicidal Intention: No Homicidal Ideation: No Homicidal Plan: No Homicidal Intention: No Insight: Fair Judgment: Impulsive Discharge/Advance Care Plan - Results Vital Signs: Last Vital Signs Temp 97.4 F L 09/30/17 06:02 Pulse 70 09/30/17 06:02 Resp 15 09/30/17 06:02 BP 119/59 L 09/30/17 06:02 Pulse Ox 91 L 09/30/17 06:02 Lab Results: Laboratory Results Hemoglobin A1c 5.4 % (4.3-6.0) 09/19/17 06:20 Triglycerides 97 mg/dL (42-150) 09/19/17 06:20 Cholesterol 118 mg/dL (120-200) L 09/19/17 06:20 LDL Cholesterol, Calc 47 mg/dL (0-99) 09/19/17 06:20 HDL Cholesterol 52.0 mg/dL (40.0-60.0) 09/19/17 06:20 TSH 2.440 uIU/mL (0.358-3.740) 09/17/17 10:58 Summary of Procedures: None done Pending Results: None - Medications Number of antipsychotic medications at discharge: 2 Appropriate use of more than 1 antipsychotic med: Doc plan:prev multi med use- monotherapy taper/cross-taper in progress (Would recommend the outpatient psychiatrist consider taper of the Seroquel or Haldol as patient stabilizes) - Discharge Care Plan Goals to Promote Your Health: * To prevent worsening of your condition and complications * To maintain your health at the optimal level Directions to Meet Your Goals: Take your medications as prescribed Follow your dietary instruction Follow activity as directed Keep your appointments as scheduled Take your immunizations and boosters as scheduled If your symptoms worsen call your PCP, if no PCP go to Urgent Care Center or Emergency Room For 09/09 questions related to your inpatient stay or results of tests pending at discharge, please contact Dr. Kyle Padilla MD at Smoking is Dangerous to Your Health. Avoid second hand smoking
== END 2017-09-30 18:15 | disposition home or self-care (01) ==
LOC: NEPE 10:12 → H4EA 14:35 → NEDA 14:36 → H4EA 14:57
PROVIDERS: ADMIT Psychiatry & Neurology Psychiatry; ATTEND Psychiatry & Neurology Psychiatry